=== PATIENT | male | born 1950 | race Caucasian/White ===

== ENCOUNTER 2020-05-04 16:20 | Emergency (ER) | payer MEDICARE, OTHER ==
[2020-05-04 16:44] VITALS: O2SAT 97
--- NOTE | 2020-05-04 16:47 | ERPHSYRPT ---
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 Patient had routine blood work drawn. His creatinine was observed to be 3.7. Patient was called at home and instructed to come to our ED immediately. Patient otherwise asymptomatic. Patient advised staff that he has stage IV renal failure and that his creatinine is typically in the 3.7 range. We reviewed patient's creatinine history and found that his creatinine is in the range of his normal. We discussed the case with patient's senior corporate accountant Dr. Cosby who advised that we not do anything further. Patient's other electrolytes were within normal limits. Potassium was normal as well. Patient's senior corporate accountant Dr. Cosby advised that we discharge patient. Nephrology will follow up with patient this week. Patient has no chest pain or shortness of breath. No weakness. No muscle cramps. No nausea or vomiting. No diarrhea. No fluid losses. No hematuria dysuria. No flank pain. Patient is at his baseline and has no complaints whatsoever. We will discharge patient home per his senior corporate accountant's advice as patient's creatinine of 3.7 is high compared to normal but it is within our patient's norm in light of his known stage IV renal insufficiency. Timing/Duration: today Severity: mild Modifying Factors: Improves With: nothing Associated Symptoms: No nausea, No vomiting, No abdominal pain, No shortness of breath, No heartburn, No diaphoresis, No cough, No chills, No chest pain, No fever, No headaches, No loss of appetite, No malaise, No syncope, No seizure, No weakness Allergies/Adverse Reactions: Tetracyclines Allergy (Intermediate, Verified 05/04/20 16:44) erythromycin base Allergy (Mild, Verified 05/04/20 16:44) Home Medications: Acetaminophen 325 mg [Tylenol 325 mg] 325 mg PO Q4H PRN PRN 09/02/16 [His tory] Amiodarone HCl 200 mg [Cordarone 200 MG] 200 mg PO DAILY 09/02/16 [History] Atenolol 50 mg [Tenormin 50 mg] 50 mg PO DAILY 09/02/16 [History] Atorvastatin Calcium 40 mg PO HS 09/02/16 [History] Clopidogrel Bisulfate 75 mg [PLAVIX 75 MG Tablet] 75 mg PO DAILY 09/02/16 [History] Docusate Sodium 100 mg [Colace 100 MG] 100 mg PO BID 09/02/16 [History] Famotidine 20 mg [Pepcid 20 MG] 20 mg PO DAILY 09/02/16 [History] Fexofenadine HCl 180 mg PO DAILY 09/02/16 [History] Glipizide 5 mg [Glucotrol 5 MG] 5 mg PO DAILY 09/02/16 [History] Glucagon 1 mg [GlucaGen 1 MG] 1 mg IM UD 09/02/16 [History] Glucosam/Chondr/Collagn/Hyalur [Glucosamine & Chondroitin Cap] 1 each PO BID 09/02/16 [History] Hydrocodone Bit/Acetaminophen [[place] 5/325Mg] 1 each PO Q4HPRN PRN 09/02/16 [History] Insulin Glargine,Hum.rec.anlog [[place]oujohnsono Solostar] 130 unit SQ DAILY 09/02/16 [History] Ipratropium [place] 0.5 mg [Atrovent 0.5MG NEBULE] 0.5 mg IH BID 09/02/16 [History] Isosorbide Mononitrate [Isosorbide Mononitrate ER] 30 mg PO DAILY 09/02/16 [History] Metoprolol Tartrate 50 mg [Lopressor 50 MG] 50 mg PO BID 09/02/16 [History] Multivit-Min/FA/Lycopen/Lutein [Men 50 Plus Multivitamin Tab] 1 each PO DAILY 09/02/16 [History] Omeprazole 20 mg PO DAILY 09/02/16 [History] Patiromer Calcium Sorbitex [Velt[place]] 8.4 gm PO DAILY 09/02/16 [History] Sodium Bicarbonate 325 mg PO BID 09/02/16 [History] Torsemide 20 mg PO BID 09/02/16 [History] Warfarin Sodium 7.5 mg PO DAILY 09/02/16 [History] calcitrioL [Calcitriol] 0.25 mcg PO UD 09/02/16 [History] Hx Tetanus, Diphtheria Vaccination/Date Given: No (STATES HE THINKS SO) Hx Influenza Vaccination/Date Given: Yes Hx Pneumococcal Vaccination/Date Given: No - Review of Systems Constitutional: No Symptoms, No Fever, No Chills Eyes: No Symptoms Ears, Nose, & Throat: No Symptoms Respiratory: No Symptoms, No Cough, No Dyspnea Cardiac: No Symptoms, No Chest Pain, No Edema, No Syncope Abdominal/Gastrointestinal: No Symptoms, No Abdominal Pain, No Nausea, No Vomiting, No Diarrhea Genitourinary Symptoms: No Symptoms, No Dysuria Musculoskeletal: No Symptoms, No Back Pain, No Neck Pain Skin: No Symptoms, No Rash Neurological: No Symptoms, No Dizziness, No Focal Weakness, No Sensory Changes Psychological: No Symptoms Endocrine: No Symptoms Hematologic/Lymphatic: No Symptoms Immunological/Allergic: No Symptoms All Other Systems: Reviewed and Negative - Past Medical History Pertinent Past Medical History: Yes Neurological History: No Pertinent History ENT History: No Pertinent History Cardiac History: Congestive Heart Failure, Hypertension Respiratory History: Pulmonary Embolism, CHF, Asthma, Bronchitis, Pneumonia Endocrine Medical History: No Pertinent History, Diabetes Type II Musculoskeletal History: Arthritis GI Medical History: Other History: No Pertinent History Psycho-Social History: No Pertinent History Male Reproductive Disorders: No Pertinent History Other Medical History: KIDNEY FUNCTION 23% (07/19/2016) - Past Surgical History Past Surgical History: Yes Neuro Surgical History: No Pertinent History Cardiac: Cardiac Catheterization Respiratory: No Pertinent History Gastrointestinal: No Pertinent History Musculoskeletal: No Pertinent History Male Surgical History: No Pertinent History Other Surgical History: DENTAL - Social History Smoking Status: Never smoker How long have you smoked: 1 year Exposure to second hand smoke: No Drug Use: none Patient Lives Alone: No Significant Family History: heart disease, hypertension, kidney/renal disease - Nursing Vital Signs Nursing Vital Signs: Initial Vital Signs Temperature 97.9 F 05/04/20 16:38 Pulse Rate 84 05/04/20 16:38 Blood Pressure 199/103 05/04/20 16:38 O2 Sat by Pulse Oximetry 97 05/04/20 16:38 Pain Scale Pain Intensity 0 - Physical Exam General Appearance: no apparent distress, alert Eye Exam: PERRL/EOMI, eyes nml inspection Ears, Nose, Throat Exam: normal ENT inspection, TMs normal, pharynx normal, moist mucous membranes Neck Exam: normal inspection, non-tender, supple, full range of motion Respiratory Exam: normal breath sounds, lungs clear, No respiratory distress Cardiovascular Exam: regular rate/rhythm, normal heart sounds, normal peripheral pulses Gastrointestinal/Abdomen Exam: soft, normal bowel sounds, No tenderness, No mass Back Exam: normal inspection, normal range of motion, No CVA tenderness, No vertebral tenderness Extremity Exam: normal inspection, normal range of motion, pelvis stable Neurologic Exam: alert, oriented x 3, cooperative, normal mood/affect, nml cerebellar function, nml station & gait, sensation nml, No motor deficits Skin Exam: normal color, warm, dry, No rash Lymphatic Exam: No adenopathy SpO2 Interpretation: normal SpO2: 97 O2 Delivery: Room Air - Course Nursing assessment & vital signs reviewed: Yes - Progress Progress: unchanged Progress Note: 05/04/20 16:48 Patient reassessed. He is adamant that patient is functioning at his baseline. He has no complaints. After discussion with Dr. Cosby we will discharge patient home. He will follow-up with his senior corporate accountant this week. Patient voices no complaints or concerns at this time. Counseled pt/family regarding: diagnosis, need for follow-up - Departure Departure Disposition: Home Clinical Impression: Encounter for medical screening examination, Chronic renal insufficiency, stage IV (severe) Condition: Stable Critical Care Time: No Referrals: KEVIN DEL VALLE [Primary Care Provider] - Additional Instructions: Discharge/Care Plan LYUDMILA BATES was seen on 05/04/20 in the Emergency Room. The patient was counseled regarding Diagnosis,Lab results, Imaging studies, need for follow up and when to return to the Emergency Room. Prescriptions given: Discharge Note I have spoken with the patient and/or caregivers. I have explained the patient's condition, diagnosis and treatment plan based on the information available to me at this time. I have answered the patient's and/or caregiver's questions and addressed any concerns. The patient and/or caregivers have as good understanding of the patient's diagnosis, condition and treatment plan as can be expected at this point. The vital signs have been stable. The patient's condition is stable and appropriate for discharge from the emergency department. The patient will pursue further outpatient evaluation with the primary care physician or other designated or consulting physician as outlined in the discharge instructions. The patient and/or caregivers are agreeable to this plan of care and follow-up instructions have been explained in detail. The patient and/or caregivers have received these instruction. The patient/and or caregivers are aware that any significant change in condition or worsening of symptoms should prompt an immediate return to this or the closest emergency department or call 911.
[2020-05-04 16:50] VITALS: BP 182/91; PULSE 80
== END 2020-05-04 16:50 | disposition home or self-care (01) ==
LOC: ED 16:20
DX: N18.4 Chronic kidney disease, stage 4 (severe) (principal); Z79.899 Other long term (current) drug therapy; I50.9 Heart failure, unspecified; I10 Essential (primary) hypertension; E11.9 Type 2 diabetes mellitus without complications; Z79.891 Long term (current) use of opiate analgesic; Z79.01 Long term (current) use of anticoagulants; Z79.4 Long term (current) use of insulin
CPT/HCPCS: 99283

== ENCOUNTER 2021-01-07 14:09 | Emergency (ER) | payer MEDICARE, OTHER ==
--- NOTE | 2021-01-07 14:29 | ERPHSYRPT ---
- History of Present Illness Time Seen by Provider: 01/07/21 14:29 Source: patient, EMS Exam Limitations: no limitations Patient Subjective Stated Complaint: C/O weakness over the past 2 days. States fell around 1200 today in the bathtub and had to crawl into the other room to get to a phone to call for help due to unable to get up off of the floor on his own after he fell. Took him over an hour to get to the phone. Denies pain at this time. Triage Nursing Assessment: Scarring and fistula in LFA. Has not received dialysis in fistula yet. 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 Able to LUX WNL without c/o pain or discomfort. BLE without shortening or external rotation noted. Physician History: This is a morbidly obese 70-year-old gentleman who is a patient of Dr. Echeverria and has multiple medical problems including morbid obesity, congestive heart failure, hypertension, pulmonary emboli on warfarin, asthma, bronchitis, diabetes, chronic renal failure with a left upper extremity fistula in place who presents via EMS for a fall that occurred in his bathroom while he was sitting in the bathtub cleaning himself. The patient states in the last 2 days he has n oticed increasing weakness overall but worse on the right side than the left side. Primarily his lower extremity rather than upper extremity. The patient states he was in the bath tub in his typical chair in the chair slipped out from under him he fell to the base of the bathtub. He did not hit his head. He has no complaints of neck pain back pain or headache. He did not lose consciousness. He could not get himself out of the bathtub and so he tried to manipulate himself out and then crawled from his bathroom to the family room where obtained a telephone and called 911 for lifting assistance and transport to the emergency department. Patient presents with some abrasions to the dorsal aspect of the toes of both feet. He has no chest pain he has no shortness of breath. He has no abdominal pain. He has had no nausea vomiting or diarrhea. The patient just wants to know why he is so weak. He wants to make sure he did not have a stroke. He also states that he prefers to go home. Timing/Duration: today Severity: mild Modifying Factors: Improves With: movement Associated Symptoms: weakness Allergies/Adverse Reactions: Tetracyclines Allergy (Intermediate, Verified 01/07/21 14:24) erythromycin base Allergy (Mild, Verified 01/07/21 14:24) Home Medications: Acetaminophen 325 mg [Tylenol 325 mg] 325 mg PO Q4H PRN PRN 09/02/16 [History] Atenolol 50 mg [Tenormin 50 mg] 50 mg PO DAILY 09/02/16 [History] Atorvastatin Calcium 40 mg PO HS 09/02/16 [History] Docusate Sodium 100 mg [Colace 100 MG] 100 mg PO BID 09/02/16 [History] Fexofenadine HCl 180 mg PO DAILY 09/02/16 [History] Glipizide 5 mg [Glucotrol 5 MG] 5 mg PO DAILY 09/02/16 [History] Glucagon 1 mg [GlucaGen 1 MG] 1 mg IM UD PRN 09/02/16 [History] Glucosam/Chondr/Collagn/Hyalur [Glucosamine & Chondroitin Cap] 1 each PO BID [History] Insulin Glargine,Hum.rec.anlog [[place]] 150 unit SQ DAILY 09/02/16 [History] Isosorbide Mononitrate [Isosorbide Mononitrate ER] 30 mg PO DAILY 09/02/16 [History] Metoprolol Tartrate 50 mg [Lopressor 50 MG] 50 mg PO BID 09/02/16 [History] Multivit-Min/FA/Lycopen/Lutein [Men 50 Plus Multivitamin Tab] 1 each PO DAILY 09/02/16 [History] Omeprazole 20 mg PO DAILY 09/02/16 [History] Torsemide 20 mg PO BID 09/02/16 [History] Empagliflozin [Jardiance] 10 mg PO DAILY 01/07/21 [History] Ergocalciferol (Vitamin D2) [Vitamin D] 50,000 units PO WEEKLY 01/07/21 [History] Ferrous Sulfate 325 mg [Feosol 325 mg] 325 mg PO BID 01/07/21 [History] Gabapentin 300 mg [Neurontin 300 mg] 300 mg PO TID 01/07/21 [History] Warfarin Sodium [Coumadin] 6 mg PO DAILY 01/07/21 [History] Hx Tetanus, Diphtheria Vaccination/Date Given: No (STATES HE THINKS SO) Hx Influenza Vaccination/Date Given: Yes Hx Pneumococcal Vaccination/Date Given: Yes Immunizations Up to Date: Yes Travel Risk - International Travel Have you traveled outside of the country in past 3 weeks: No - Coronavirus Screening Are you exhibiting any of the following symptoms?: No Close contact with a COVID-19 positive Pt in past 14-21 Days: No - Vaccine Status Have you recieved a Covid-19 vaccination: Yes 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: [employer] - Vaccination Dates Date of 2cond Vaccination (if applicable): 09/22/2020 - Review of Systems Constitutional: Weakness Eyes: No Symptoms Ears, Nose, & Throat: No Symptoms Respiratory: No Symptoms Cardiac: No Symptoms Abdominal/Gastrointestinal: No Symptoms Genitourinary Symptoms: No Symptoms Musculoskeletal: No Symptoms Skin: Other (Abrasions to the dorsal aspect of the toes of both feet.) Neurological: No Symptoms Psychological: No Symptoms Endocrine: No Symptoms Hematologic/Lymphatic: No Symptoms Immunological/Allergic: No Symptoms All Other Systems: Reviewed and Negative - Past Medical History Pertinent Past Medical History: Yes Neurological History: No Pertinent History ENT History: No Pertinent History Cardiac History: Congestive Heart Failure, Hypertension Respiratory History: Pulmonary Embolism, CHF, Asthma, Bronchitis, Pneumonia Endocrine Medical History: No Pertinent History, Diabetes Type II Musculoskeletal History: Arthritis GI Medical History: Other History: No Pertinent History Psycho-Social History: No Pertinent History Male Reproductive Disorders: No Pertinent History Other Medical History: KIDNEY FUNCTION 23% (07/19/2016) - Past Surgical History Past Surgical History: Yes Neuro Surgical History: No Pertinent History Cardiac: Cardiac Catheterization Respiratory: No Pertinent History Gastrointestinal: No Pertinent History Genitourinary: No Pertinent History Musculoskeletal: No Pertinent History, Amputation Male Surgical History: No Pertinent History Other Surgical History: DENTAL, Fistula placement - Social History Smoking Status: Never smoker How long have you smoked: 1 year Exposure to second hand smoke: No Drug Use: none Patient Lives Alone: Yes Significant Family History: heart disease, hypertension, kidney/renal disease - Nursing Vital Signs Nursing Vital Signs: Initial Vital Signs Temperature 98 F 01/07/21 14:11 Pulse Rate 81 01/07/21 14:11 Respiratory Rate 18 01/07/21 14:11 Blood Pressure 179/76 01/07/21 14:11 O2 Sat by Pulse Oximetry 97 01/07/21 14:11 Pain Scale Pain Intensity 0 - Physical Exam General Appearance: no apparent distress, alert, anxiety, obese Eye Exam: PERRL/EOMI, eyes nml inspection Ears, Nose, Throat Exam: normal ENT inspection, moist mucous membranes Neck Exam: normal inspection, non-tender, supple, full range of motion Respiratory Exam: normal breath sounds, lungs clear, airway intact, No chest tenderness, No respiratory distress Cardiovascular Exam: regular rate/rhythm, normal heart sounds, normal peripheral pulses Gastrointestinal/Abdomen Exam: soft, normal bowel sounds, No tenderness Rectal Exam: not done Back Exam: normal inspection, normal range of motion, No CVA tenderness, No vertebral tenderness Extremity Exam: normal inspection, normal range of motion, pelvis stable, other (Right first toe amputationremote) Neurologic Exam: alert, oriented x 3, cooperative, inspector elevators II-XII nml as tested Skin Exam: abrasion (Abrasion to the dorsal aspect of all remaining toes of the right foot and left foot, bilateral elbows and bilateral knees.) Lymphatic Exam: No adenopathy SpO2 Interpretation: normal SpO2: 97 O2 Delivery: Room Air - Course Nursing assessment & vital signs reviewed: Yes EKG Interpreted by Me: RATE (81), Sinus Rhythm, NORMAL AXIS, NORMAL INTERVALS, Right Bundle Branch Block, NORMAL ST-T, Other (There are no acute ischemic changes on today's EKG. When compared to EKG dated 07/24/2017, there is persistent right bundle branch block but today's EKG shows resolution of the other findings on EKG dated 07/24/2017 there is improvement in the EKGs.) Ordered Tests: Active Orders 24 hr Category Date Time Status Local City Driver STAT Care 01/07/21 14:43 Active EKG-ER Only STAT Care 01/07/21 14:42 Active IV Insertion STAT Care 01/07/21 14:42 Active NPO (ED) STAT Care 01/07/21 14:43 Active Pulse Oximetry (ED) STAT Care 01/07/21 14:42 Active HEAD WITHOUT CONTRAST [CT] Stat Exams 01/07/21 14:43 Completed CBC W DIFF Stat Lab 01/07/21 15:15 Completed CMP Stat Lab 01/07/21 15:15 Completed Lactic Acid Stat Lab 01/07/21 15:15 Completed TROPONIN Q3H Lab 01/07/21 15:15 Completed TROPONIN Q3H Lab 01/07/21 17:45 Ordered TROPONIN Q3H Lab 01/07/21 20:45 Ordered TROPONIN Q3H Lab 01/07/21 23:45 Ordered TROPONIN Q3H Lab 01/08/21 02:45 Ordered UA W/RFX UR CULTURE Stat Lab 01/07/21 14:50 Completed Lab/Rad Data: Laboratory Result Diagrams 01/07/21 15:15 01/07/21 15:15 Laboratory Results 01/07/21 01/07/21 01/07/21 Range/Units 15:15 15:15 15:15 WBC (4.0-10.5) K/mm3 RBC (4.1-5.6) M/mm3 Hgb (12.5-18.0) gm/dl Hct (42-50) % MCV (78-100) fl MCH (26-32) pg MCHC (32-36) g/dl RDW (11.5-14.0) % Plt Count (150-450) K/mm3 MPV (7.5-11.0) fl Gran % (36.0-66.0) % Eos # (Auto) (0-0.5) Absolute Lymphs (auto) (1.0-4.6) Absolute Monos (auto) (0.0-1.3) Lymphocytes % (24.0-44.0) % Monocytes % (0.0-12.0) % Eosinophils % (0.00-5.0) % Basophils % (0.0-0.4) % Absolute Granulocytes (1.4-6.9) Basophils # (0-0.4) Sodium 138 (137-145) mmol/L Potassium 4.4 (3.5-5.1) mmol/L Chloride 100 (98-107) mmol/L Carbon Dioxide 27 (22-30) mmol/L Anion Gap 15.4 H (5-15) MEQ/L BUN 44 H (9-20) mg/dL Creatinine 3.47 H (0.66-1.25) mg/dL Estimated GFR 18.8 ML/MIN Glucose 133 H (74-106) mg/dL Lactic Acid 2.7 H (0.4-2.0) Calcium 9.7 (8.4-10.2) mg/dL Total Bilirubin 0.40 (0.2-1.3) mg/dL AST 36 (17-59) U/L ALT 18 (0-50) U/L Alkaline Phosphatase 84 (38-126) U/L Troponin I 0.012 (0.000-0.034) ng/mL Serum Total Protein 7.2 (6.3-8.2) g/dL Albumin 4.2 (3.5-5.0) g/dL Urine Color (YELLOW) Urine Appearance (CLEAR) Urine pH (5-6) Ur Specific [place] (1.005-1.025) Urine Protein (Negative) Urine Ketones (NEGATIVE) Urine Blood (0-5) Mani/ul Urine Nitrite (NEGATIVE) Urine Bilirubin (NEGATIVE) Urine Urobilinogen (0-1) mg/dL Ur Leukocyte Esterase (NEGATIVE) Urine WBC (Auto) (0-5) /HPF Urine RBC (Auto) (0-2) /HPF U Epithel Cells (Auto) (FEW) /HPF Urine Bacteria (Auto) (NEGATIVE) /HPF Urine Mucus (Auto) (NEGATIVE) /HPF Urine Culture Reflexed (NO) Urine Glucose (NEGATIVE) mg/dL 01/07/21 01/07/21 Range/Units 15:15 14:50 WBC 13.6 H (4.0-10.5) K/mm3 RBC 4.39 (4.1-5.6) M/mm3 Hgb 12.8 (12.5-18.0) gm/dl Hct 39.7 L (42-50) % MCV 90.4 (78-100) fl MCH 29.2 (26-32) pg MCHC 32.2 (32-36) g/dl RDW 13.4 (11.5-14.0) % Plt Count 203 (150-450) K/mm3 MPV 11.6 H (7.5-11.0) fl Gran % 81.8 H (36.0-66.0) % Eos # (Auto) 0.17 (0-0.5) Absolute Lymphs (auto) 1.09 (1.0-4.6) Absolute Monos (auto) 1.18 (0.0-1.3) Lymphocytes % 8.0 L (24.0-44.0) % Monocytes % 8.7 (0.0-12.0) % Eosinophils % 1.3 (0.00-5.0) % Basophils % 0.2 (0.0-0.4) % Absolute Granulocytes 11.12 H (1.4-6.9) Basophils # 0.03 (0-0.4) Sodium (137-145) mmol/L Potassium (3.5-5.1) mmol/L Chloride (98-107) mmol/L Carbon Dioxide (22-30) mmol/L Anion Gap (5-15) MEQ/L BUN (9-20) mg/dL Creatinine (0.66-1.25) mg/dL Estimated GFR ML/MIN Glucose (74-106) mg/dL Lactic Acid (0.4-2.0) Calcium (8.4-10.2) mg/dL Total Bilirubin (0.2-1.3) mg/dL AST (17-59) U/L ALT (0-50) U/L Alkaline Phosphatase (38-126) U/L Troponin I (0.000-0.034) ng/mL Serum Total Protein (6.3-8.2) g/dL Albumin (3.5-5.0) g/dL Urine Color STRAW (YELLOW) Urine Appearance CLEAR (CLEAR) Urine pH 5.0 (5-6) Ur Specific [place] 1.009 (1.005-1.025) Urine Protein 100 (Negative) Urine Ketones NEGATIVE (NEGATIVE) Urine Blood SMALL (0-5) Mani/ul Urine Nitrite NEGATIVE (NEGATIVE) Urine Bilirubin NEGATIVE (NEGATIVE) Urine Urobilinogen NEGATIVE (0-1) mg/dL Ur Leukocyte Esterase NEGATIVE (NEGATIVE) Urine WBC (Auto) NONE (0-5) /HPF Urine RBC (Auto) 0-2 (0-2) /HPF U Epithel Cells (Auto) NONE (FEW) /HPF Urine Bacteria (Auto) NONE SEEN (NEGATIVE) /HPF Urine Mucus (Auto) SLIGHT (NEGATIVE) /HPF Urine Culture Reflexed NO (NO) Urine Glucose >=500 (NEGATIVE) mg/dL - Progress Progress: unchanged Progress Note: 01/07/21 15:47 CAT scan of the head without contrast shows age-appropriate atrophy and degenerative microischemia. There is tiny lacunar infarct of the left basal ganglia. There is no acute intracranial abnormalities per radiologist 01/07/21 16:24 Medical decision making: This patient is diabetic and has leukocytosis. The cause of this is unknown. He does have chronic renal failure reviewing past creatinines and GFR is in this patient, reveals his current renal function is in his normal range. His lactic acid was elevated. He is afebrile. I will discharge to home this patient with a prescription for 5 doses of Levaquin 500 mg orally every other day because of his renal function. 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 01/07/21 16:29 Patient reexamined. Patient states that he feels well enough to go home and wants to go home. Counseled pt/family regarding: lab results, diagnosis, need for follow-up, rad results - Departure Departure Disposition: Home Clinical Impression: Leukocytosis, Chronic renal failure Condition: Stable Critical Care Time: No Referrals: KEVIN ECHEVERRIA [Primary Care Provider] - Additional Instructions: Drink plenty of fluids. Take your medication as prescribed. Keep all your abrasion sites clean daily with soap and water. May apply topical antibiotic of choice to the sites once a day. Follow-up with your primary care physician for further management. Prescriptions: Levofloxacin [Levaquin] 500 mg PO UD #5 dose
--- NOTE | 2021-01-07 15:12 | XRAY ---
Indication: Head injury following fall in bathtub. Right-sided weakness. Multiple contiguous axial images obtained through the head without contrast. Comparison: None Age-appropriate global atrophy and mild periventricular degenerative micro-ischemia bilaterally. Tiny lacunar infarct left basal ganglia. No acute intracranial hemorrhage, abnormal extra-axial fluid collection, or mass effect. Fourth ventricle is midline without hydrocephalus. Bony calvarium intact. Visualized paranasal sinuses and mastoid air cells are clear. Impression: Normal aging brain including atrophy and degenerative micro-ischemia. Tiny lacunar infarct left basal ganglia. No acute intracranial abnormalities.
[2021-01-07 15:29] LABS: Absolute Neutrophil Ct (ANC) 11.12 (1.4-6.9); BASOPHIL % 0.2 % (0.0-0.4); Basophil (Absolute #) 0.03 (0-0.4); Eosinophil % 1.3 % (0.00-5.0); Eosinophil (Absolute #) 0.17 (0-0.5); Hematocrit 39.7 % (42-50); Hemoglobin 12.8 gm/dl (12.5-18.0); Lymphocyte (Absolute #) 1.09 (1.0-4.6); Mean Cell Volume 90.4 fl (78-100); Mean Corpuscular Hemoglobin 29.2 pg (26-32); Mean Corpuscular Hgb Concent. 32.2 g/dl (32-36); Mean Platelet Volume 11.6 fl (7.5-11.0); Monocyte (Absolute #) 1.18 (0.0-1.3); Monocytes % 8.7 % (0.0-12.0); Neutrophil % 81.8 % (36.0-66.0); Platelet Count 203 K/mm3 (150-450); Red Blood Count 4.39 M/mm3 (4.1-5.6); Red Cell Distribution Width 13.4 % (11.5-14.0); White Blood Count 13.6 K/mm3 (4.0-10.5)
[2021-01-07 15:36] VITALS: BP 161/79; PULSE 84
[2021-01-07 15:41] LABS: ALBUMIN 4.2 g/dL (3.5-5.0); ANION GAP 15.4 MEQ/L (5-15); BILIRUBIN,TOTAL 0.4 mg/dL (0.2-1.3); Calcium 9.7 mg/dL (8.4-10.2); Creatinine 1 3.47 mg/dL (0.66-1.25); EST GLOMERULAR FILTRATION RATE 18.8 ML/MIN; Potassium 4.4 mmol/L (3.5-5.1); Total Protein 7.2 g/dL (6.3-8.2)
[2021-01-07 15:50] LABS: Appearance CLEAR (CLEAR); Bilirubin NEGATIVE (NEGATIVE); Blood SMALL Ery/ul (0-5); Glucose >=500 mg/dL (NEGATIVE); Ketones NEGATIVE (NEGATIVE); Leukocyte Esterase NEGATIVE (NEGATIVE); Mucus SLIGHT /HPF (NEGATIVE); Nitrite NEGATIVE (NEGATIVE); Protein,Urine Dip 100 (Negative); RBC 0-2 /HPF (0-2); Specific Gravity 1.009 (1.005-1.025); Urobilinogen NEGATIVE mg/dL (0-1)
[2021-01-07 15:52] LABS: Bacteria NONE SEEN /HPF (NEGATIVE)
[2021-01-07 16:47] VITALS: O2SAT 98
== END 2021-01-07 16:57 | disposition home or self-care (01) ==
LOC: ED 14:09
DX: Z79.899 Other long term (current) drug therapy (principal); I12.9 Hypertensive chronic kidney disease with stage 1 through stage 4 chronic kidney disease, or unspecified chronic kidney disease; E11.9 Type 2 diabetes mellitus without complications; W19.XXXA Unspecified fall, initial encounter; Y93.9 Activity, unspecified; Y92.89 Other specified places as the place of occurrence of the external cause
CPT/HCPCS: 36000; 36415; 70450; 80053; 81001; 83605; 84484; 85025; 93005; 93041; 94760; 99284

== ENCOUNTER 2021-01-07 22:09 | Inpatient (IN) | payer MEDICARE, OTHER ==
--- NOTE | 2021-01-07 22:10 | ERPHSYRPT ---
- History of Present Illness Time Seen by Provider: 01/07/21 22:10 Source: patient, EMS Exam Limitations: no limitations Physician History: This is a morbidly obese 70-year-old white male patient of Dr. Echeverria who was seen in this emergency room earlier today (less than 8 hours ago). Patient was diagnosed with leukocytosis of unknown origin, chronic renal failure, abrasions of the toes bilaterally, bilateral feet, bilateral knees and bilateral elbows and generalized weakness. CAT scan of the head without contrast showed no acute intracranial abnormalities. Patient was sent home with a prescription for Levaquin. Patient was feeling better and his work-up was not significant for any emergent issues. Patient wanted to be discharged to home and was feeling better and walked out of the door and out to the car of his ride earlier today. Patient went home and his right leg gave out. He then dropped to the floor. He did not suffer any trauma that was due to this evening but had difficulty getting up again and had to crawl to call EMS. EMS brought the patient in. He is hemodynamically stable. He has a complaint of generalized weakness. I contacted Dr. Echeverria, the patient's primary care provider who is also covering is the hospitalist today. He agreed with me that is not necessary to repeat all the studies. He did want me to obtain a procalcitonin level on the earlier blood draw to determine if this patient needs continued Levaquin. Patient denies chest pain. He denies shortness of breath. Patient lives alone Timing/Duration: today Severity: moderate Modifying Factors: Improves With: movement Associated Symptoms: weakness Allergies/Adverse Reactions: Tetracyclines Allergy (Intermediate, Verified 01/07/21 22:12) erythromycin base Allergy (Mild, Verified 01/07/21 22:12) Home Medications: Acetaminophen 325 mg [Tylenol 325 mg] 325 mg PO Q4H PRN PRN 09/02/16 [History] Atenolol 50 mg [Tenormin 50 mg] 50 mg PO DAILY 09/02/16 [History] Atorvastatin Calcium 40 mg PO HS 09/02/16 [History] Docusate Sodium 100 mg [Colace 100 MG] 100 mg PO BID 09/02/16 [History] Fexofenadine HCl 180 mg PO DAILY 09/02/16 [History] Glipizide 5 mg [Glucotrol 5 MG] 5 mg PO DAILY 09/02/16 [History] Glucagon 1 mg [GlucaGen 1 MG] 1 mg IM UD PRN 09/02/16 [History] Glucosam/Chondr/Collagn/Hyalur [Glucosamine & Chondroitin Cap] 1 each PO BID 09/02/16 [History] Insulin Glargine,Hum.rec.anlog [Toujeo Solostar] 150 unit SQ DAILY 09/02/16 [History] Isosorbide Mononitrate [Isosorbide Mononitrate ER] 30 mg PO DAILY 09/02/16 [History] Metoprolol Tartrate 50 mg [Lopressor 50 MG] 50 mg PO BID 09/02/16 [History] Multivit-Min/FA/Lycopen/Lutein [Men 50 Plus Multivitamin Tab] 1 each PO DAILY 09/02/16 [History] Omeprazole 20 mg PO DAILY 09/02/16 [History] Torsemide 20 mg PO BID 09/02/16 [History] Empagliflozin [Jardiance] 10 mg PO DAILY 01/07/21 [History] Ergocalciferol (Vitamin D2) [Vitamin D] 50,000 units PO WEEKLY 01/07/21 [History] Ferrous Sulfate 325 mg [Feosol 325 mg] 325 mg PO BID 01/07/21 [History] Gabapentin 300 mg [Neurontin 300 mg] 300 mg PO TID 01/07/21 [History] Warfarin Sodium [Coumadin] 6 mg PO DAILY 01/07/21 [History] Hx Tetanus, Diphtheria Vaccination/Date Given: No (STATES HE THINKS SO) Hx Influenza Vaccination/Date Given: Yes Hx Pneumococcal Vaccination/Date Given: Yes Travel Risk - International Travel Have you traveled outside of the country in past 3 weeks: No - Coronavirus Screening Are you exhibiting any of the following symptoms?: No Close contact with a COVID-19 positive Pt in past 14-21 Days: No - Vaccine Status Have you recieved a Covid-19 vaccination: Yes [facility] [employer]: Moderna - Vaccination Dates Date of 2cond Vaccination (if applicable): 09/22/2020 - Review of Systems Constitutional: Weakness Eyes: No Symptoms Ears, Nose, & Throat: No Symptoms Respiratory: No Symptoms Cardiac: No Symptoms Abdominal/Gastrointestinal: No Symptoms Genitourinary Symptoms: No Symptoms Musculoskeletal: No Symptoms Skin: Other (Abrasions to bilateral elbows, bilateral knees, bilateral feet and multiple toes bilaterally) Psychological: No Symptoms Endocrine: No Symptoms Hematologic/Lymphatic: No Symptoms Immunological/Allergic: No Symptoms All Other Systems: Reviewed and Negative - Past Medical History Pertinent Past Medical History: Yes Neurological History: No Pertinent History ENT History: No Pertinent History Cardiac History: Congestive Heart Failure, Hypertension Respiratory History: Pulmonary Embolism, CHF, Asthma, Bronchitis, Pneumonia Endocrine Medical History: No Pertinent History, Diabetes Type II Musculoskeletal History: Arthritis GI Medical History: Other History: No Pertinent History Psycho-Social History: No Pertinent History Male Reproductive Disorders: No Pertinent History Other Medical History: KIDNEY FUNCTION 23% (07/19/2016) - Past Surgical History Past Surgical History: Yes Neuro Surgical History: No Pertinent History Cardiac: Cardiac Catheterization Respiratory: No Pertinent History Gastrointestinal: No Pertinent History Genitourinary: No Pertinent History Musculoskeletal: No Pertinent History, Amputation Male Surgical History: No Pertinent History Other Surgical History: DENTAL, Fistula placement - Social History Smoking Status: Never smoker How long have you smoked: 1 year Exposure to second hand smoke: No Drug Use: none Patient Lives Alone: Yes Significant Family History: heart disease, hypertension, kidney/renal disease - Nursing Vital Signs Nursing Vital Signs: Initial Vital Signs Pulse Rate 107 H 01/07/21 22:09 Respiratory Rate 16 01/07/21 22:09 Blood Pressure 144/93 01/07/21 22:09 O2 Sat by Pulse Oximetry 98 01/07/21 22:09 Pain Scale Pain Intensity 5 - Physical Exam General Appearance: no apparent distress, alert, anxiety, obese Eye Exam: PERRL/EOMI, eyes nml inspection Ears, Nose, Throat Exam: normal ENT inspection, moist mucous membranes Neck Exam: normal inspection, non-tender, supple, full range of motion Respiratory Exam: normal breath sounds, lungs clear, airway intact, No chest tenderness, No respiratory distress Cardiovascular Exam: normal heart sounds, normal peripheral pulses, tachycardia Rectal Exam: not done Back Exam: normal inspection, normal range of motion, No CVA tenderness, No vertebral tenderness Extremity Exam: normal range of motion, pelvis stable, tenderness (To abrasion sites of bilateral elbows bilateral knees and bilateral feet with toes bilaterally) Neurologic Exam: alert, oriented x 3, cooperative, band instrument repairer II-XII nml as tested, normal mood/affect, nml cerebellar function, sensation nml Skin Exam: warm, dry, abrasion (Abrasions as stated above) Lymphatic Exam: No adenopathy SpO2 Interpretation: normal O2 Delivery: Room Air Ordered Tests: Active Orders 24 hr Category Date Time Status PROCALCITONIN Stat Lab 01/07/21 15:22 Completed Transfer Order Routine Transfer 01/07/21 Ordered Lab/Rad Data: Laboratory Results 01/07/21 Range/Units 15:22 Procalcitonin 0.109 H (0.030-0.080) ng/mL - Progress Progress: unchanged Discussed with : Althea Counseled pt/family regarding: lab results, diagnosis - Departure Departure Disposition: In-patient Admission Clinical Impression: Weakness, Difficulty in walking, Chronic renal failure, Leukocytosis, Abrasions of multiple sites, Tachycardia Condition: Fair Critical Care Time: No Referrals: KEVIN ECHEVERRIA [Primary Care Provider] -
[2021-01-08] MEDS ORDERED: Zofran 4 MG/2 ML VIAL IV PRN (00:09)
[2021-01-08] MEDS ORDERED: TYLENOL 325 MG PO PRN (00:09)
[2021-01-08 00:57] LABS: Absolute Neutrophil Ct (ANC) 12.01 (1.4-6.9); BASOPHIL % 0.1 % (0.0-0.4); Basophil (Absolute #) 0.02 (0-0.4); Eosinophil % 0.3 % (0.00-5.0); Eosinophil (Absolute #) 0.04 (0-0.5); Hematocrit 38.1 % (42-50); Hemoglobin 12.4 gm/dl (12.5-18.0); Lymphocyte (Absolute #) 1.07 (1.0-4.6); Lymphocytes % 7.3 % (24.0-44.0); Mean Cell Volume 90.1 fl (78-100); Mean Corpuscular Hemoglobin 29.3 pg (26-32); Mean Corpuscular Hgb Concent. 32.5 g/dl (32-36); Mean Platelet Volume 11.5 fl (7.5-11.0); Monocyte (Absolute #) 1.48 (0.0-1.3); Monocytes % 10.1 % (0.0-12.0); Neutrophil % 82.2 % (36.0-66.0); Platelet Count 203 K/mm3 (150-450); Red Blood Count 4.23 M/mm3 (4.1-5.6); Red Cell Distribution Width 13.5 % (11.5-14.0); White Blood Count 14.6 K/mm3 (4.0-10.5)
[2021-01-08 01:08] LABS: ANION GAP 14.3 MEQ/L (5-15); Calcium 9.5 mg/dL (8.4-10.2); Creatinine 1 3.59 mg/dL (0.66-1.25); EST GLOMERULAR FILTRATION RATE 18.1 ML/MIN; Potassium 4.1 mmol/L (3.5-5.1)
[2021-01-08] MEDS: Sodium Chloride 0.9% 1000 ML 1,000 ML IV SCH ×2 (01:34→19:30)
[2021-01-08] MEDS: Levofloxacin 500MG/100ML D5W 500 MG/100 ML BAG IV SCH (01:39)
[2021-01-08] MEDS ORDERED: GlucaGen 1 MG IM PRN (09:13)
[2021-01-08] MEDS ORDERED: MEDICATION INTERVENTION PO SCH ×2 (09:30)
[2021-01-08] MEDS ORDERED: NON-FORMULARY ITEM (Losartan Potassium [Cozaar] 25 MG) PO SCH (10:00)
[2021-01-08] MEDS ORDERED: [UNRECOGNIZED DRUG - OTHER] PO SCH (10:00)
[2021-01-08] MEDS ORDERED: Bactroban OINTMENT TP SCH (10:00)
[2021-01-08] MEDS ORDERED: NON-FORMULARY ITEM (Empagliflozin [Jardiance] 10 MG) PO SCH (10:00)
[2021-01-08] MEDS ORDERED: WARFARIN SODIUM 6 MG PO SCH (10:00)
[2021-01-08] MEDS ORDERED: NON-FORMULARY ITEM (Omeprazole [Omeprazole] 20 MG) PO SCH (10:00)
[2021-01-08] MEDS: Bactroban OINTMENT TP SCH ×3 (10:33→20:36)
[2021-01-08] MEDS: Colace 100 MG PO SCH (10:35)
[2021-01-08] MEDS: Lopressor 50 MG PO SCH ×2 (10:35→20:38)
[2021-01-08] MEDS: Cozaar 50 MG PO SCH (10:35)
[2021-01-08] MEDS: Protonix 40MG Tablet PO SCH (10:35)
[2021-01-08 11:52] LABS: INR 1.77 (0.8-3.0); PROTIME 20.9 SECONDS (9.4-12.5)
[2021-01-08] MEDS: HUMULIN R SQ PRN ×3 (12:10→20:38)
[2021-01-08] MEDS: TYLENOL 325 MG PO PRN ×3 (15:28→23:37)
[2021-01-08] MEDS: Glucotrol 5 MG PO SCH (16:22)
[2021-01-08] MEDS: Coumadin 3 MG PO SCH (17:00)
[2021-01-08] MEDS: ZOCOR 20MG PO SCH (20:38)
[2021-01-08] MEDS ORDERED: LIPITOR 40MG PO SCH (22:00)
[2021-01-09] MEDS: TYLENOL 325 MG PO PRN ×4 (04:08→20:33)
[2021-01-09 07:02] LABS: Absolute Neutrophil Ct (ANC) 6.59 (1.4-6.9); BASOPHIL % 0.4 % (0.0-0.4); Basophil (Absolute #) 0.04 (0-0.4); Eosinophil (Absolute #) 0.38 (0-0.5); Hematocrit 37.8 % (42-50); Hemoglobin 12.2 gm/dl (12.5-18.0); Lymphocyte (Absolute #) 1.37 (1.0-4.6); Lymphocytes % 14.5 % (24.0-44.0); Mean Cell Volume 91.1 fl (78-100); Mean Corpuscular Hemoglobin 29.4 pg (26-32); Mean Corpuscular Hgb Concent. 32.3 g/dl (32-36); Mean Platelet Volume 11.6 fl (7.5-11.0); Monocyte (Absolute #) 1.06 (0.0-1.3); Monocytes % 11.2 % (0.0-12.0); Neutrophil % 69.9 % (36.0-66.0); Platelet Count 184 K/mm3 (150-450); Red Blood Count 4.15 M/mm3 (4.1-5.6); Red Cell Distribution Width 13.3 % (11.5-14.0); White Blood Count 9.4 K/mm3 (4.0-10.5)
[2021-01-09 07:05] LABS: INR 1.77 (0.8-3.0); PROTIME 20.9 SECONDS (9.4-12.5)
[2021-01-09 07:12] LABS: ALBUMIN 3.8 g/dL (3.5-5.0); BILIRUBIN,TOTAL 0.4 mg/dL (0.2-1.3); Calcium 8.9 mg/dL (8.4-10.2); Creatinine 1 3.41 mg/dL (0.66-1.25); EST GLOMERULAR FILTRATION RATE 19.2 ML/MIN; Potassium 4.2 mmol/L (3.5-5.1); Total Protein 6.8 g/dL (6.3-8.2)
[2021-01-09] MEDS: Glucotrol 5 MG PO SCH ×2 (07:44→16:29)
[2021-01-09] MEDS: HUMULIN R SQ PRN ×3 (07:45→20:32)
[2021-01-09] MEDS: Cozaar 50 MG PO SCH (10:20)
[2021-01-09] MEDS: Protonix 40MG Tablet PO SCH (10:20)
[2021-01-09] MEDS: Bactroban OINTMENT TP SCH ×3 (10:20→20:34)
[2021-01-09] MEDS: Lopressor 50 MG PO SCH ×2 (10:20→20:32)
[2021-01-09] MEDS: Colace 100 MG PO SCH (10:21)
[2021-01-09] MEDS: Coumadin 3 MG PO SCH (16:30)
[2021-01-09] MEDS: ZOCOR 20MG PO SCH (20:33)
[2021-01-10] MEDS: Levofloxacin 500MG/100ML D5W 500 MG/100 ML BAG IV SCH (00:10)
[2021-01-10] MEDS: TYLENOL 325 MG PO PRN ×2 (00:10→11:10)
[2021-01-10 06:28] LABS: Hematocrit 38.6 % (42-50); Hemoglobin 12.2 gm/dl (12.5-18.0); Mean Cell Volume 92.8 fl (78-100); Mean Corpuscular Hemoglobin 29.3 pg (26-32); Mean Corpuscular Hgb Concent. 31.6 g/dl (32-36); Mean Platelet Volume 12.3 fl (7.5-11.0); Platelet Count 159 K/mm3 (150-450); Red Blood Count 4.16 M/mm3 (4.1-5.6); Red Cell Distribution Width 13.4 % (11.5-14.0); White Blood Count 9.7 K/mm3 (4.0-10.5)
[2021-01-10 06:34] LABS: INR 1.61 (0.8-3.0)
[2021-01-10 06:41] LABS: ALBUMIN 3.4 g/dL (3.5-5.0); BILIRUBIN,TOTAL 0.4 mg/dL (0.2-1.3); Calcium 8.7 mg/dL (8.4-10.2); Creatinine 1 3.03 mg/dL (0.66-1.25); Potassium 4.8 mmol/L (3.5-5.1); Total Protein 6.1 g/dL (6.3-8.2)
[2021-01-10] MEDS: Glucotrol 5 MG PO SCH ×2 (08:08→17:22)
[2021-01-10] MEDS: HUMULIN R SQ PRN ×4 (08:08→21:13)
[2021-01-10 08:21] LABS: Basophil 1 % (0.0-1.0); Eosinophil 5 % (0.00-3.0); Lymphocytes 17 % (24-44); Monocyte 2 % (0.0-12.0); Neutrophils 75 % (36.-66.); Total Cells Counted 100
[2021-01-10 08:22] LABS: Platelet Estimate NORMAL (NORMAL)
[2021-01-10] MEDS: Colace 100 MG PO SCH (11:03)
[2021-01-10] MEDS: Cozaar 50 MG PO SCH (11:03)
[2021-01-10] MEDS: Protonix 40MG Tablet PO SCH (11:04)
[2021-01-10] MEDS: Lopressor 50 MG PO SCH ×2 (11:04→19:53)
[2021-01-10] MEDS: Bactroban OINTMENT TP SCH ×3 (11:05→19:53)
--- NOTE | 2021-01-10 11:17 | HP ---
CHIEF COMPLAINT: Right leg weakness and falling. HISTORY OF PRESENT ILLNESS: The patient is a 70 year-old white male patient who was in the shower and said his right leg gave way with him and he fell in the tub. He was unable to get out of the tub for up to an hour after which he crawled to a phone and summoned help. The patient does not have any family here locally and lives alone currently and has a friend who can come and check on him was not present that day. The patient has history of chronic renal failure and diabetes mellitus type II, now with generalized weakness. PAST MEDICAL/SURGICAL HISTORY: Significant for diabetes mellitus type II currently on insulin as well as oral medications. He is morbidly obese. He has hypertension, peripheral neuropathy due to the diabetes, history previously of pulmonary embolism for which he is on Coumadin. He has had a heart cath, fistula for his arm and need for eventual dialysis. MEDICATIONS: The patient's home medication list is extensive. It includes: Acetaminophen every 4 hours PRN for pain, amlodipine 10 mg daily, atorvastatin 40 a day, clonidine 0.1 mg t.i.d., docusate sodium 100 mg daily, Jardiance 10 mg a day, vitamin D 50,000 units weekly, gabapentin 300 mg t.i.d., glipizide 5 mg b.i.d., glucagon if his sugar is up. He takes glucosamine chondroitin for knee pain. He is on 100 to 120 subcu twice daily of Insulin Glargine. He is on isosorbide at 60 mg a day. He is on losartan 25 mg a day, metolazone 2.5 mg a day, metoprolol 100 mg b.i.d., omeprazole 20 mg a day, Torsemide 20 mg b.i.d., warfarin 6 mg daily. ALLERGIES: TETRACYCLINES. ERYTHROMYCIN. PHYSICAL EXAMINATION: Vital signs on admission showed temperature afebrile, pulse 107, respiratory rate 16 and blood pressure 144/93. O2 saturation 98% on room air. HEENT: Normocephalic, atraumatic. Pupils equal round reactive to light. Extraocular movements intact. Oropharynx is pink and moist. NECK: Supple without lymphadenopathy, thyromegaly or JVD. CHEST: Clear to auscultation. HEART: Regular rate and rhythm. ABDOMEN: Soft without palpable masses. EXTREMITIES: Revealed no cyanosis, clubbing or edema other than abrasions over the knee and right foot from where he was crawling around on the rug. LAB DATA AND TESTS: The patient's laboratory studies thus far have shown slight elevation in the procalcitonin and white count initially of 12,500. His COVD test was negative. His metabolic panel showed glucose of 129, BUN 45, creatinine 3.59. His electrolytes were normal. His white count had increased to 14,600. ASSESSMENT: The patient had been initially been sent home from the emergency room but upon return for the weakness, the repeat showed his white count to be up slightly. This patient was treated with Levaquin in the emergency room without a clear source of infection although his white count being up as well as procalcitonin as well. I agree with broad spectrum coverage. We started the patient on Levaquin IV. He has been started on IV fluids at 50 cc normal saline and will have Accu-Chek's performed. We will monitor his blood pressures and sugars closely. We will continue to continue to give him IV Levaquin and IV fluids and obtain physical therapy consult to see if the patient will be safe to return home or whether he needs treatment at a rehab facility.
[2021-01-10] MEDS ORDERED: Lantus Insulin SQ ONE (14:09)
--- NOTE | 2021-01-10 14:13 | XRAY ---
Indication: USP placement. Comparison: None PA/lateral chest hyperinflated without focal infiltrate, consolidation, or large effusion. Heart not enlarged and demonstrates CABG surgery. Bony thorax intact with mild osteopenia and degenerative changes. Impression: Nonacute chest with chronic features.
[2021-01-10] MEDS: PATIENT OWN MEDICATION PO SCH ×2 (14:42→14:57)
[2021-01-10] MEDS: Coumadin 3 MG PO SCH (17:22)
[2021-01-10] MEDS: HUMALOG SQ SCH (17:23)
[2021-01-10] MEDS: BUMEX 1 MG IV SCH (21:13)
[2021-01-10] MEDS: ZOCOR 20MG PO SCH (21:13)
[2021-01-10] MEDS: Lantus Insulin SQ SCH (21:13)
[2021-01-11] MEDS: BUMEX 1 MG IV SCH ×4 (02:00→21:03)
[2021-01-11] MEDS: TYLENOL 325 MG PO PRN ×3 (04:37→14:04)
[2021-01-11 05:59] LABS: ALBUMIN 3.9 g/dL (3.5-5.0); ANION GAP 13.2 MEQ/L (5-15); BILIRUBIN,TOTAL 0.3 mg/dL (0.2-1.3); Calcium 9.1 mg/dL (8.4-10.2); Creatinine 1 3.45 mg/dL (0.66-1.25); EST GLOMERULAR FILTRATION RATE 18.9 ML/MIN; Potassium 4.5 mmol/L (3.5-5.1); Total Protein 7.1 g/dL (6.3-8.2)
[2021-01-11] MEDS: HUMULIN R SQ PRN ×2 (08:00→11:30)
[2021-01-11] MEDS: HUMALOG SQ SCH ×3 (08:00→16:48)
[2021-01-11] MEDS: Glucotrol 5 MG PO SCH ×2 (08:00→16:48)
--- NOTE | 2021-01-11 08:27 | CONS ---
CONSULT DATE: 01/10/2021 REASON FOR CONSULT: Evaluation of increased BUN and creatinine. HISTORY: Shon Parikh is a very pleasant 70 year-old gentleman who is well known to renal service. The patient follows up with me for chronic kidney disease stage IV and in the past was stage V. Baseline creatinine in the office has anywhere around 3.5 to 3.8 mg%. The patient's etiology of chronic kidney disease is related to underlying history of hypertension, diabetes, obesity. The patient is chronically noncompliant. He also has tendency for fluid overload. He is status post AV fistula by Dr. Barrios. The fistula has not matured very well. The patient was admitted to [facility] after he was in the shower and his right leg gave away and he fell in the tub. He was unable to get out of the tub. He crawled to the phone and summoned for help. He was subsequently admitted to the hospital. He has progressive leg swelling. Creatinine was 3 and a renal consultation was called. REVIEW OF SYSTEMS: No nausea, vomiting or diarrhea. No chest pain. No shortness of breath. Generalized weakness present. No dysuria or hematuria. Wounds were present. Progressive leg swelling was present. His diuretics were held at admission. All systems were reviewed in detail and pertinent mentioned here and in history of present illness and the rest were negative. PAST MEDICAL HISTORY: Diabetes mellitus type II, hypertension, chronic kidney disease stage IV progressing to stage V. Fluid overload. History of congestive heart failure. Atrial fibrillation. Dyslipidemia. Chronic constipation. Obesity. Chronic osteoarthritis. History of pulmonary embolism. PAST SURGICAL HISTORY: AV fistula placement in the past. HOME MEDICATIONS: Amlodipine 10 mg daily, meclizine 2.5 mg Sunday, Sunday and Sunday; torsemide 20 mg b.i.d., glipizide 5 mg b.i.d., Jardiance 10 mg daily, amlodipine 10 mg daily, vitamin D supplementation, isosorbide 60 mg daily, losartan 25 daily, metoprolol 100 mg b.i.d. ALLERGIES: TETRACYCLINE. ERYTHROMYCIN. SOCIAL HISTORY: Former smoker. No alcohol abuse. No drug abuse. FAMILY HISTORY: No history of renal problems in the family. PHYSICAL EXAMINATION: Reveals a gentleman who was seen on the Med/Surg floor. Vital signs were reviewed. HEENT: Normocephalic, atraumatic, slightly pale conjunctivae, nonicteric sclera. NECK: Supple. No JVD. CHEST: Decreased basilar breath sounds. CVS: S1, S2 normal. No rub or gallop. ABDOMEN: Soft, nontender, globular. No organomegaly. EXTREMITIES: No cyanosis. Edema +2 to +3 bilaterally. SKIN: Multiple wounds noted over the foot and leg. MUSCULOSKELETAL: No acute joint swelling, redness, nontender. NEUROLOGIC: Alert, awake, oriented x3. LAB DATA AND TESTS: Labs were reviewed. Hemoglobin 12.2. INR was 1.61. Creatinine 3.03, potassium 4.8, calcium 8.7. Blood sugar was 303. ASSESSMENT: 1) Chronic kidney disease stage IV at the cusp of stage V. Creatinine is lower than baseline. The baseline is around 3.5 to 3.8 mg%, this could be because of volume overload and causing redistribution of creatinine and dilutional effect. We will restart diuretics. No evidence of acute kidney injury. Potassium normal. Bicarb levels normal. Urinating well. No urgent need for any renal replacement therapy. Avoid nonsteroidals. Okay to continue small dose of losartan. 2) Fluid overload with multiple wounds. With the fluid overload will impair healing. Start Bumex 1 mg every six hours for 24 hours followed by resumption of home diuretics. We will recommend 1500 cc fluid restriction. 3) Status post fall. Check CPK levels though I doubt myoglobin related renal injury given the fact that creatinine is lower than baseline. 4) Hypertension. Continue present medication, 2 gm salt restricted diet, 1500 cc fluid restriction recommended. 5) Diabetes mellitus type II. Management as per primary team. 6) Hyperkalemia. Usually high potassium which is not high even potassium level is normal, continue to monitor. 7) Secondary hyperparathyroidism. Phosphorus levels were normal in the recent blood test. Vitamin D levels were normal PTH was more or less stable the level of renal dysfunction at 118. Avoid calcium supplementation. Consider vitamin D alone as an outpatient. All questions answered.
[2021-01-11] MEDS: Bactroban OINTMENT TP SCH ×3 (09:00→21:03)
[2021-01-11] MEDS: Lantus Insulin SQ SCH ×2 (09:01→21:04)
[2021-01-11] MEDS: Cozaar 50 MG PO SCH (09:01)
[2021-01-11] MEDS: Lopressor 50 MG PO SCH ×2 (09:01→21:04)
[2021-01-11] MEDS: Colace 100 MG PO SCH (09:01)
[2021-01-11] MEDS: Protonix 40MG Tablet PO SCH (09:02)
[2021-01-11] MEDS: PATIENT OWN MEDICATION PO SCH (09:02)
[2021-01-11] MEDS: Coumadin 3 MG PO SCH (17:10)
[2021-01-11] MEDS: ZOCOR 20MG PO SCH (21:05)
[2021-01-11] MEDS: Levofloxacin 500MG/100ML D5W 500 MG/100 ML BAG IV SCH (23:16)
[2021-01-12] MEDS: TYLENOL 325 MG PO PRN (00:22)
[2021-01-12] MEDS ORDERED: Apresoline 25 MG TABLET PO ONE (01:00)
[2021-01-12] MEDS: BUMEX 1 MG IV SCH ×2 (03:10→07:36)
[2021-01-12] MEDS: Glucotrol 5 MG PO SCH (07:33)
[2021-01-12] MEDS: Protonix 40MG Tablet PO SCH (07:33)
[2021-01-12] MEDS: Lopressor 50 MG PO SCH (07:33)
[2021-01-12] MEDS: Colace 100 MG PO SCH (07:33)
[2021-01-12] MEDS: Cozaar 50 MG PO SCH (07:33)
[2021-01-12] MEDS: Lantus Insulin SQ SCH (07:33)
[2021-01-12] MEDS: HUMALOG SQ SCH ×2 (07:34→12:13)
[2021-01-12] MEDS: HUMULIN R SQ PRN ×2 (07:34→12:13)
[2021-01-12] MEDS: Bactroban OINTMENT TP SCH (07:35)
[2021-01-12] MEDS: PATIENT OWN MEDICATION PO SCH (07:36)
[2021-01-12 12:08] VITALS: BP 180/90; PULSE 77; O2SAT 96
--- NOTE | 2021-01-12 13:26 | DS ---
DISCHARGE DIAGNOSES: 1) LEUKOCYTOSIS. 2) WEAKNESS. 3) FALL. 4) ABRASIONS. 5) DIABETES MELLITUS TYPE II, OUT OF CONTROL. HOSPITAL COURSE: The patient is a 70 year-old white male patient who reports that at home he had fallen in his bath tub and took over an hour to get out of the tub. He eventually crawled to his phone to get help during which time he had abrasions over the knees and feet. The patient was initially seen in the emergency room and discharged home again but he was unable to care for himself in the home and presented back to the emergency room and was admitted to the hospital. At this time the patient was give IV antibiotics due to an elevation in his white count and elevation of his procalcitonin level indicating a possible bacterial infection although we could find no obvious source of infection. The patient's white count did improve with the antibiotic as did the procalcitonin level. The patient also has chronic renal failure. He was due to see his core stacker as an outpatient so we had him seen as an inpatient. We gave him additional Bumex for a couple of days to get the fluid out of his legs better but then after two days he got back down to his usual Bumex dosage. The patient otherwise was treated with Levaquin intravenously. By 01/11/2021, it was obvious the patient was still not able to care for himself in the home and he does live alone. He is therefore felt the need to go to rehab for strengthening with the hope of eventually returning home once again. The patient's medications otherwise at home which he will return to is: Amlodipine 10 mg a day, atorvastatin 40 mg a day, clonidine 0.1 mg t.i.d., docusate sodium 100 mg daily, Jardiance 10 mg a day, vitamin D 50,000 units weekly, gabapentin 300 mg t.i.d., glipizide 5 mg twice a day, Glucosamine and Chondroitin for knee pain. He is on Insulin Glargine, isosorbide 60 mg, losartan 25 mg, metolazone 2.5, metoprolol 100 mg twice a day, omeprazole 20 mg a day, atorvastatin 20 mg b.i.d., warfarin 6 mg a day. In addition to this he will be taking the Levaquin 500 mg every other day due to reduction of his renal function. The patient's renal function with creatinine remained at approximately 3.4 with renal function of 15-17% normal glomerular filtration rate and this did not change during his stay. The patient's blood pressure were a little high because I held off one of his blood pressure medications due to his weakness and relative thought of orthostatic hypotension. He had been running in the 160's to 180 range without his medications and these will be restarted when he goes to rehab. The patient will be seen in my office again in a couple of weeks after his rehab stay. If he is unable to improve to the point where he can care for himself in the home he may need to be admitted to the senior living.
[2021-01-13 15:13] LABS: CK-MB 0 % (0-3); CK-MM 98 % (97-100); Creatinine Kinase, Total 1477 U/L (41-331); Macro Type 2 0 % (Not Observed)
[2021-01-13 16:50] LABS: CK-BB 0 % (0); Macro Type 1 2 % (Not Observed)
== END 2021-01-12 13:37 | DRG 815 ==
LOC: ED 22:09 → OBSVTOIN 23:53 → INTOOBSV 23:53 → MED SURG 23:53 → OBSVTOIN 01-09 06:00
PROVIDERS: ADMIT Family Medicine; ATTEND Family Medicine
DX: D72.829 Elevated white blood cell count, unspecified (principal); N18.4 Chronic kidney disease, stage 4 (severe); N25.81 Secondary hyperparathyroidism of renal origin; R53.1 Weakness; Z79.899 Other long term (current) drug therapy; Z79.01 Long term (current) use of anticoagulants; S50.312A Abrasion of left elbow, initial encounter; S50.311A Abrasion of right elbow, initial encounter; S80.212A Abrasion, left knee, initial encounter; S80.211A Abrasion, right knee, initial encounter; S90.415A Abrasion, left lesser toe(s), initial encounter; S90.414A Abrasion, right lesser toe(s), initial encounter; E11.65 Type 2 diabetes mellitus with hyperglycemia; E11.22 Type 2 diabetes mellitus with diabetic chronic kidney disease; I12.9 Hypertensive chronic kidney disease with stage 1 through stage 4 chronic kidney disease, or unspecified chronic kidney disease; W18.2XXA Fall in (into) shower or empty bathtub, initial encounter; Z86.711 Personal history of pulmonary embolism; E87.70 Fluid overload, unspecified; E87.5 Hyperkalemia; Z20.828 Contact with and (suspected) exposure to other viral communicable diseases
CPT/HCPCS: 36000; 36415; 70450; 71046; 80048; 80053; 81001; 82550; 82552; 82947; 83036; 83605; 83735; 84145; 84484; 85025; 85610; 87040; 93005; 93041; 94760; 97110; 97161; 97530; 99284; G0378; U0003; J1815; J1817; J1956; A9270-GY

== ENCOUNTER 2021-02-07 19:26 | Emergency (ER) | payer MEDICARE, OTHER ==
--- NOTE | 2021-02-07 19:43 | ERPHSYRPT ---
- History of Present Illness Time Seen by Provider: 02/07/21 19:43 Source: patient Exam Limitations: no limitations Patient Subjective Stated Complaint: pt states, "I fell 2 times today, just needed to be checked out". Triage Nursing Assessment: pt was a pt at [facility] and got discharged yesterday. Pt has fallen 2 times today but no reported injuries. Pt states, "I was going to sit in my recliner but I got dizzy and turned around and tripped on my walker". The second fall, "I was heating my dinner up in the microwave and my back gave out on me causing me to fall". Pt uses a walker at home and had it with him. Pt has home health care which just began today and will be receiving Physical therapy from them". Pt has a rug burn to both elbows from falls, scabbed over. Physician History: This is a morbidly obese 70-year-old white male patient of Dr. Echeverria who has been in the emergency room's several times in the last 6 weeks for frequent falls. He has been written to the hospital on a couple occasions and most recently was transferred from the hospital to [facility]. Patient underwent significant physical therapy and per his admission prior to today's fall he had been walking up and down the hallways without any problems. However, today, his first day home, he states that he lost his balance and fell. He has no complaints of any pain. He denies head injury. He felt his back was hurting and then lost his balance because he felt as though his legs were going to give out. He has no specific pain complaints other than the back pain he felt when he turned and lost his balance. Again, he did not hit his head. He called the ambulance service to take him back to the emergency department because he "wants to know why he keeps falling". Patient denies chest pain. He denies shortness of breath. He denies abdominal pain. Patient has multiple medical problems including congestive heart failure, hypertension, pulmonary embolism on Coumadin therapy, asthma, bronchitis, diabetes and chronic renal failure with a left upper extremity fistula present. According to the patient, physical therapy and home health is in the process of being scheduled for him as an outpatient. Occurred: just prior to arrival Reason for Fall: lost balance Injuries/Pain Location: no injury, head Loss of Consciousness: no loss of consciousness Quality: other (No complaints of pain) Severity of Pain-Max: none Severity of Pain-Current: none Associated Symptoms (Fall): denies symptoms Allergies/Adverse Reactions: Tetracyclines Allergy (Intermediate, Verified 02/07/21 19:41) erythromycin base Allergy (Mild, Verified 02/07/21 19:41) Home Medications: Acetaminophen 325 mg [Tylenol 325 mg] 325 mg PO Q4H PRN PRN 09/02/16 [History] Docusate Sodium 100 mg [Colace 100 MG] 100 mg PO DAILY 09/02/16 [History] Glipizide 5 mg [Glucotrol 5 MG] 10 mg PO BID 09/02/16 [History] Glucagon 1 mg [GlucaGen 1 MG] 1 mg IM UD PRN 09/02/16 [History] Glucosam/Chondr/Collagn/Hyalur [Glucosamine & Chondroitin Cap] 1 each PO BID 09/02/16 [History] Metoprolol Tartrate 50 mg [Lopressor 50 MG] 100 mg PO BID 09/02/16 [ History] Empagliflozin [Jardiance] 10 mg PO DAILY 01/07/21 [History] Ergocalciferol (Vitamin D2) [Vitamin D] 50,000 units PO WEEKLY 01/07/21 [History] Clonidine HCl 0.1 mg PO TID 01/08/21 [History] Losartan Potassium [Cozaar] 25 mg PO DAILY 01/08/21 [History] Insulin Aspart [Novolog] 20 unit SQ AC 01/10/21 [History] Hx Tetanus, Diphtheria Vaccination/Date Given: No (STATES HE THINKS SO) Hx Influenza Vaccination/Date Given: Yes Hx Pneumococcal Vaccination/Date Given: Yes Immunizations Up to Date: Yes Travel Risk - International Travel Have you traveled outside of the country in past 3 weeks: No - Coronavirus Screening Are you exhibiting any of the following symptoms?: No - Vaccine Status Have you recieved a Covid-19 vaccination: Yes 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: [employer] - Vaccination Dates Date of 2cond Vaccination (if applicable): 09/22/20 - Review of Systems Constitutional: No Symptoms Eyes: No Symptoms Ears, Nose, & Throat: No Symptoms Respiratory: No Symptoms Cardiac: No Symptoms Abdominal/Gastrointestinal: No Symptoms Genitourinary Symptoms: No Symptoms Musculoskeletal: No Symptoms Skin: Other (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 toes.) Neurological: No Symptoms Psychological: No Symptoms Endocrine: No Symptoms Hematologic/Lymphatic: No Symptoms Immunological/Allergic: No Symptoms - Past Medical History Pertinent Past Medical History: Yes Neurological History: No Pertinent History ENT History: No Pertinent History Cardiac History: Congestive Heart Failure, Hypertension Respiratory History: Pulmonary Embolism, CHF, Bronchitis, Pneumonia Endocrine Medical History: Diabetes Type II Musculoskeletal History: Arthritis GI Medical History: Other History: Other Psycho-Social History: No Pertinent History Male Reproductive Disorders: No Pertinent History Other Medical History: KIDNEY FUNCTION 23% (07/19/2016) - Past Surgical History Past Surgical History: Yes Neuro Surgical History: No Pertinent History Cardiac: CABG, Cardiac Catheterization Respiratory: No Pertinent History Gastrointestinal: No Pertinent History Genitourinary: No Pertinent History Musculoskeletal: No Pertinent History, Amputation Male Surgical History: No Pertinent History Other Surgical History: DENTAL, Fistula placement triple bypass, remove rt great toe, - Social History Smoking Status: Never smoker How long have you smoked: 1 year Exposure to second hand smoke: No Drug Use: none Patient Lives Alone: Yes Significant Family History: heart disease, hypertension, kidney/renal disease - Nursing Vital Signs Nursing Vital Signs: Initial Vital Signs Temperature 98.2 F 02/07/21 19:26 Pulse Rate 70 02/07/21 19:26 Respiratory Rate 22 02/07/21 19:26 Blood Pressure 146/75 02/07/21 19:26 O2 Sat by Pulse Oximetry 96 02/07/21 19:26 Pain Scale Pain Intensity 3 - Krystyna Coma Score Best Eye Response (Lerona): (4) open spontaneously Best Verbal Response (Krystyna): (5) oriented Best Motor Response (Lerona): (6) obeys commands Lerona Total: 15 - Physical Exam General Appearance: no apparent distress, alert, anxiety, obese Head Injury: no evidence of injury Eye Exam: PERRL/EOMI, eyes nml inspection ENT Exam: airway nml, evidence of ENT injury Neck Exam: supple, trachea midline, full range of motion, normal alignment, normal inspection Respiratory/Chest Exam: No chest tenderness, No respiratory distress, No crepitus Gastrointestinal Exam: No tenderness Rectal Exam: not done Extremity Exam: normal range of motion, capillary refill <3 sec, other (No tenderness on any extremities. 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 02/07/21 21:17 Medical decision making: This patient has had a significant work-up in the last 6 weeks regarding his frequent falls. Per his admission, he states that he was walking up and down the tellez several times a day as recent as prior to 24 hours ago. However, he has been home during the day today. He was cooking his microwave dinner when he lost his balance and turn and fell again. He called EMS to come into the emergency department because suddenly he cannot move. However, he states he does not have any pain in his extremities at all. This patient has no emergency issue tonight. He has home health and physical therapy set up for this week. Patient will be discharged to home with instructions to contact his home health provider tomorrow morning as well as physical therapy for further management. Counseled pt/family regarding: diagnosis, need for follow-up, rad results - Departure Departure Disposition: Home Clinical Impression: Fall with no significant injury Condition: Stable Critical Care Time: No Referrals: KEVIN ECHEVERRIA [Primary Care Provider] - Additional Instructions: Continue your Roberto Sher discharge instructions. Continue medications and diet as instructed and prescribed.
[2021-02-07 21:54] VITALS: BP 156/78; PULSE 88; O2SAT 97
--- NOTE | 2021-02-08 09:02 | XRAY ---
Indication: Frequent falls. Recent discharge from [facility]. Multiple contiguous axial images obtained through the head without contrast. Comparison: January 07, 2021. There is again age-appropriate global atrophy and mild periventricular degenerative micro-ischemia bilaterally. No acute intracranial hemorrhage, abnormal extra-axial fluid collection, or mass effect. Fourth ventricle is midline without hydrocephalus. Bony calvarium intact. Visualized paranasal sinuses and mastoid air cells are clear. Impression: Continued nonacute senile brain.
== END 2021-02-07 21:55 | disposition home or self-care (01) ==
LOC: ED 19:26
DX: T22.021A Burn of unspecified degree of right elbow, initial encounter (principal); W18.39XA Other fall on same level, initial encounter; Z91.81 History of falling; Y93.89 Activity, other specified; Y92.129 Unspecified place in nursing home as the place of occurrence of the external cause; R29.6 Repeated falls; E11.9 Type 2 diabetes mellitus without complications; I50.9 Heart failure, unspecified; I10 Essential (primary) hypertension; Z86.711 Personal history of pulmonary embolism; Z79.899 Other long term (current) drug therapy
CPT/HCPCS: 70450; 99284

== ENCOUNTER 2021-02-08 19:34 | Observation (INO) | payer MEDICARE, OTHER ==
[2021-02-08 20:45] LABS: ALBUMIN 3.5 g/dL (3.5-5.0); ANION GAP 13.6 MEQ/L (5-15); BILIRUBIN,TOTAL 0.3 mg/dL (0.2-1.3); Creatinine 1 3.5 mg/dL (0.66-1.25); EST GLOMERULAR FILTRATION RATE 18.6 ML/MIN; Potassium 4.2 mmol/L (3.5-5.1); Total Protein 6.3 g/dL (6.3-8.2)
[2021-02-08 20:58] LABS: Absolute Neutrophil Ct (ANC) 3.86 (1.4-6.9); BASOPHIL % 0.4 % (0.0-0.4); Basophil (Absolute #) 0.02 (0-0.4); Eosinophil % 2.6 % (0.00-5.0); Eosinophil (Absolute #) 0.15 (0-0.5); Hematocrit 34.7 % (42-50); Hemoglobin 11.4 gm/dl (12.5-18.0); Lymphocyte (Absolute #) 0.86 (1.0-4.6); Lymphocytes % 15.2 % (24.0-44.0); Mean Cell Volume 91.3 fl (78-100); Mean Corpuscular Hgb Concent. 32.9 g/dl (32-36); Mean Platelet Volume 12.5 fl (7.5-11.0); Monocyte (Absolute #) 0.78 (0.0-1.3); Monocytes % 13.8 % (0.0-12.0); Platelet Count 171 K/mm3 (150-450); White Blood Count 5.7 K/mm3 (4.0-10.5)
--- NOTE | 2021-02-09 00:31 | ERPHSYRPT ---
- History of Present Illness Time Seen by Provider: 02/08/21 19:56 Source: patient Exam Limitations: no limitations Patient Subjective Stated Complaint: Patient states " I called 911 because I felt weak and been having multiple falls." Triage Nursing Assessment: Patient arrived to ED via ambulance. Patient A/O times 4. Patient able to follow instructions without difficulty. Patient was in ED last night R/T weakness and falls. Patient stated he had talked to Dr. Echeverria and he told him to just come back to ED to be admitted so he could go back to [facility]. Patient BS upon arrival 56. EMS had given patient tube of oral glucose on route to ED. Patient alert and talkative. Central color pale. Patient denies any SOB or chest pain. Lungs diminished A/P throughout. Respiratory regular and easy. No acute respiratory distress noted. Cap refill < 3 seconds. + BS times 4 quads. ABD soft, obese, non-distended. Patient denies any pain or discomfort upon palpitation. Patient noted with 1-2+ pitting edema to bilateral lower extremities. 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 Neuro checks WNL. Patient denies any N/V. Patient denies any headaches or dizziness. Patient stated he just continues to have weakness and that he needs to go back to [facility] for therapy. Abrasions that are scabbed noted to left knee and right elbow. No treatment needed at this time. Patient denies any pain or discomfort. Patient did tell assembly instructions writer that his BS at lunch time was 258 so he did take 20U of his Novolog and 30U of basagler insulin to try and bring it down and didn't eat anything for lunch in which BS dropped resulting in BS 56. Physician History: Patient is a 70-year-old male presents to our ED via EMS for evaluation and treatment of hypoglycemia. Patient states that he checked his blood sugar earlier in the day sugar was 258. Patient took 20 units of NovoLog and 50 units of Basaglar. Patient later began to feel weak. Patient fell at home. Patient called his primary care doctor who advised patient come to our ED for admission. Patient called EMS. Upon their arrival blood sugar level was 50. Patient was treated with glucose. Upon arrival to our ED blood sugar was 56. Patient states he feels weak. Patient was in our ED last night for the same. Patient believes he needs to be admitted or transferred to [facility] for rehab. Patient denies injuries. No neck pain. No headache. Cervical spine cleared clinically. Symptoms are mild to moderate in intensity. Patient voices no other complaints concerns at this time. Timing/Duration: today Severity: moderate Modifying Factors: Improves With: medication Associated Symptoms: weakness (Generalized weakness) Allergies/Adverse Reactions: Tetracyclines Allergy (Intermediate, Verified 02/08/21 20:38) erythromycin base Allergy (Mild, Verified 02/08/21 20:38) Home Medications: Acetaminophen 325 mg [Tylenol 325 mg] 325 mg PO Q4H PRN PRN 09/02/16 [History] Docusate Sodium 100 mg [Colace 100 MG] 100 mg PO DAILY 09/02/16 [History] Glipizide 5 mg [Glucotrol 5 MG] 10 mg PO BID 09/02/16 [History] Glucagon 1 mg [GlucaGen 1 MG] 1 mg IM UD PRN 09/02/16 [History] Glucosam/Chondr/Collagn/Hyalur [Glucosamine & Chondroitin Cap] 1 each PO BID 09/02/16 [History] Metoprolol Tartrate 50 mg [Lopressor 50 MG] 100 mg PO BID 09/02/16 [History] Empagliflozin [Jardiance] 10 mg PO DAILY 01/07/21 [History] Ergocalciferol (Vitamin D2) [Vitamin D] 50,000 units PO WEEKLY 01/07/21 [History] Clonidine HCl 0.1 mg PO TID 01/08/21 [History] Losartan Potassium [Cozaar] 25 mg PO DAILY 01/08/21 [History] Insulin Aspart [Novolog] 20 unit SQ AC 01/10/21 [History] Amlodipine Besylate 10 mg PO DAILY 02/08/21 [History] Atorvastatin Calcium 40 mg PO HS 02/08/21 [History] Fexofenadine HCl 180 mg PO DAILY 02/08/21 [History] Gabapentin 300 mg [Neurontin 300 mg] 300 mg PO TID 02/08/21 [History] Insulin Glargine,Hum.rec.anlog [Basaglar Kwikpen U-100] 50 units SQ DAILY 02/08/21 [History] Isosorbide Mononitrate 60 mg [Imdur 60MG] 60 mg PO DAILY 02/08/21 [History] Multivitamin 1 tab PO DAILY 02/08/21 [History] Omeprazole 20 mg PO DAILY 02/08/21 [History] Torsemide 20 mg [Demadex 20 mg] 20 mg PO BID 02/08/21 [History] Hx Tetanus, Diphtheria Vaccination/Date Given: No (STATES HE THINKS SO) Hx Influenza Vaccination/Date Given: Yes Hx Pneumococcal Vaccination/Date Given: Yes Immunizations Up to Date: Yes Travel Risk - International Travel Have you traveled outside of the country in past 3 weeks: No - Coronavirus Screening Are you exhibiting any of the following symptoms?: No Close contact with a COVID-19 positive Pt in past 14-21 Days: No - Vaccine Status Have you recieved a Covid-19 vaccination: Yes 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[employer] - Vaccination Dates Date of 2cond Vaccination (if applicable): 09/22/20 - Review of Systems Constitutional: No Symptoms, No Fever, No Chills Eyes: No Symptoms Ears, Nose, & Throat: No Symptoms Respiratory: No Symptoms, No Cough, No Dyspnea Cardiac: No Symptoms, No Chest Pain, No Edema, No Syncope Abdominal/Gastrointestinal: No Symptoms, No Abdominal Pain, No Nausea, No Vomiting, No Diarrhea Genitourinary Symptoms: No Symptoms, No Dysuria Musculoskeletal: No Symptoms, No Back Pain, No Neck Pain Skin: No Symptoms, No Rash Neurological: No Symptoms, No Dizziness, No Focal Weakness, No Sensory Changes Psychological: No Symptoms Endocrine: No Symptoms Hematologic/Lymphatic: No Symptoms Immunological/Allergic: No Symptoms All Other Systems: Reviewed and Negative - Past Medical History Pertinent Past Medical History: Yes Neurological History: No Pertinent History ENT History: No Pertinent History Cardiac History: Congestive Heart Failure, Hypertension Respiratory History: Pulmonary Embolism, CHF, Bronchitis, Pneumonia Endocrine Medical History: Diabetes Type II Musculoskeletal History: Arthritis GI Medical History: Other History: Other Psycho-Social History: No Pertinent History Male Reproductive Disorders: No Pertinent History Other Medical History: KIDNEY FUNCTION 23% (07/19/2016) - Past Surgical History Past Surgical History: Yes Neuro Surgical History: No Pertinent History Cardiac: CABG, Cardiac Catheterization Respiratory: No Pertinent History Gastrointestinal: No Pertinent History Genitourinary: No Pertinent History Musculoskeletal: No Pertinent History, Amputation Male Surgical History: No Pertinent History Other Surgical History: DENTAL, Fistula placement triple bypass, remove rt great toe, - Social History Smoking Status: Never smoker How long have you smoked: 1 year Exposure to second hand smoke: No Drug Use: none Patient Lives Alone: Yes Significant Family History: heart disease, hypertension, kidney/renal disease - Nursing Vital Signs Nursing Vital Signs: Initial Vital Signs Temperature 97.8 F 02/08/21 19:53 Pulse Rate 68 02/08/21 19:53 Respiratory Rate 20 02/08/21 19:53 Blood Pressure 140/62 02/08/21 19:53 O2 Sat by Pulse Oximetry 96 02/08/21 19:53 Pain Scale Pain Intensity 0 - Physical Exam General Appearance: no apparent distress, alert Eye Exam: PERRL/EOMI, eyes nml inspection Ears, Nose, Throat Exam: normal ENT inspection, TMs normal, pharynx normal, moist mucous membranes Neck Exam: normal inspection, non-tender, supple, full range of motion Respiratory Exam: normal breath sounds, lungs clear, No respiratory distress Cardiovascular Exam: regular rate/rhythm, normal heart sounds, normal peripheral pulses Gastrointestinal/Abdomen Exam: soft, normal bowel sounds, No tenderness, No mass Back Exam: normal inspection, normal range of motion, No CVA tenderness, No vertebral tenderness Extremity Exam: normal inspection, normal range of motion, pelvis stable, other (2+ pitting edema bilateral lower extremity.) Neurologic Exam: alert, oriented x 3, cooperative, normal mood/affect, sensation nml, No motor deficits Skin Exam: normal color, warm, dry, No rash Lymphatic Exam: No adenopathy SpO2 Interpretation: normal SpO2: 100 O2 Delivery: Room Air - Course Nursing assessment & vital signs reviewed: Yes EKG Interpreted by Me: RATE (65), Sinus Rhythm, NORMAL INTERVALS, Right Bundle Branch Block (Left ventricular hypertrophy) Ordered Tests: Active Orders 24 hr Category Date Time Status Customer Success Advocate STAT Care 02/08/21 19:48 Active EKG-ER Only STAT Care 02/08/21 19:47 Active IV Insertion STAT Care 02/08/21 19:47 Active Pulse Oximetry (ED) STAT Care 02/08/21 19:47 Active CBC W DIFF Stat Lab 02/08/21 20:15 Completed CMP Stat Lab 02/08/21 20:15 Completed POCT GLUCOSE Stat Lab 02/08/21 19:48 Completed POCT GLUCOSE Stat Lab 02/08/21 21:41 Completed POCT GLUCOSE Stat Lab 02/08/21 22:44 Completed POCT GLUCOSE Stat Lab 02/09/21 00:17 Completed POCT GLUCOSE Stat Lab 02/09/21 01:28 Completed TROPONIN Q3H Lab 02/08/21 20:15 Completed TROPONIN Q3H Lab 02/08/21 22:53 Completed TROPONIN Q3H Lab 02/09/21 02:45 Completed Transfer Order Routine Transfer 02/09/21 Ordered Medication Summary Discontinued Medications Generic Name Dose Route Start Last Admin Trade Name Juan Carlosq PRN Reason Stop Dose Admin Clonidine 0.1 mg 02/09/21 02:07 02/09/21 02:13 Catapres 0.1 Mg PO 02/09/21 02:08 0.1 mg STAT ONE Administration Clonidine Confirm 02/09/21 02:11 Catapres 0.1 Mg Administered 02/09/21 02:12 Dose 0.1 mg .ROUTE .STK-MED ONE Metoprolol Tartrate 100 mg 02/09/21 02:07 02/09/21 02:13 Lopressor 50 Mg PO 02/09/21 02:08 100 mg STAT ONE Administration Metoprolol Tartrate Confirm 02/09/21 02:11 Lopressor 50 Mg Administered 02/09/21 02:12 Dose 100 mg .ROUTE .STK-MED ONE Lab/Rad Data: Laboratory Result Diagrams 02/08/21 20:15 02/08/21 20:15 Laboratory Results 02/09/21 02/09/21 02/09/21 Range/Units 02:45 02:45 01:28 WBC (4.0-10.5) K/mm3 RBC (4.1-5.6) M/mm3 Hgb (12.5-18.0) gm/dl Hct (42-50) % MCV (78-100) fl MCH (26-32) pg MCHC (32-36) g/dl RDW (11.5-14.0) % Plt Count (150-450) K/mm3 MPV (7.5-11.0) fl Gran % (36.0-66.0) % Eos # (Auto) (0-0.5) Absolute Lymphs (auto) (1.0-4.6) Absolute Monos (auto) (0.0-1.3) Lymphocytes % (24.0-44.0) % Monocytes % (0.0-12.0) % Eosinophils % (0.00-5.0) % Basophils % (0.0-0.4) % Absolute Granulocytes (1.4-6.9) Basophils # (0-0.4) Sodium (137-145) mmol/L Potassium (3.5-5.1) mmol/L Chloride (98-107) mmol/L Carbon Dioxide (22-30) mmol/L Anion Gap (5-15) MEQ/L BUN (9-20) mg/dL Creatinine (0.66-1.25) mg/dL Estimated GFR ML/MIN Glucose (74-106) mg/dL POC Glucometer 155 H (74 to 106) mg/dL Calcium (8.4-10.2) mg/dL Total Bilirubin (0.2-1.3) mg/dL AST (17-59) U/L ALT (0-50) U/L Alkaline Phosphatase (38-126) U/L Troponin I < 0.012 (0.000-0.034) ng/mL Serum Total Protein (6.3-8.2) g/dL Albumin (3.5-5.0) g/dL SARS-CoV-2 (PCR) NEGATIVE (NEGATIVE) 02/09/21 02/08/21 02/08/21 Range/Units 00:17 22:53 22:44 WBC (4.0-10.5) K/mm3 RBC (4.1-5.6) M/mm3 Hgb (12.5-18.0) gm/dl Hct (42-50) % MCV (78-100) fl MCH (26-32) pg MCHC (32-36) g/dl RDW (11.5-14.0) % Plt Count (150-450) K/mm3 MPV (7.5-11.0) fl Gran % (36.0-66.0) % Eos # (Auto) (0-0.5) Absolute Lymphs (auto) (1.0-4.6) Absolute Monos (auto) (0.0-1.3) Lymphocytes % (24.0-44.0) % Monocytes % (0.0-12.0) % Eosinophils % (0.00-5.0) % Basophils % (0.0-0.4) % Absolute Granulocytes (1.4-6.9) Basophils # (0-0.4) Sodium (137-145) mmol/L Potassium (3.5-5.1) mmol/L Chloride (98-107) mmol/L Carbon Dioxide (22-30) mmol/L Anion Gap (5-15) MEQ/L BUN (9-20) mg/dL Creatinine (0.66-1.25) mg/dL Estimated GFR ML/MIN Glucose (74-106) mg/dL POC Glucometer 122 H 76 (74 to 106) mg/dL Calcium (8.4-10.2) mg/dL Total Bilirubin (0.2-1.3) mg/dL AST (17-59) U/L ALT (0-50) U/L Alkaline Phosphatase (38-126) U/L Troponin I < 0.012 (0.000-0.034) ng/mL Serum Total Protein (6.3-8.2) g/dL Albumin (3.5-5.0) g/dL SARS-CoV-2 (PCR) (NEGATIVE) 02/08/21 02/08/21 02/08/21 Range/Units 21:41 20:15 20:15 WBC (4.0-10.5) K/mm3 RBC (4.1-5.6) M/mm3 Hgb (12.5-18.0) gm/dl Hct (42-50) % MCV (78-100) fl MCH (26-32) pg MCHC (32-36) g/dl RDW (11.5-14.0) % Plt Count (150-450) K/mm3 MPV (7.5-11.0) fl Gran % (36.0-66.0) % Eos # (Auto) (0-0.5) Absolute Lymphs (auto) (1.0-4.6) Absolute Monos (auto) (0.0-1.3) Lymphocytes % (24.0-44.0) % Monocytes % (0.0-12.0) % Eosinophils % (0.00-5.0) % Basophils % (0.0-0.4) % Absolute Granulocytes (1.4-6.9) Basophils # (0-0.4) Sodium 140 (137-145) mmol/L Potassium 4.2 (3.5-5.1) mmol/L Chloride 110 H (98-107) mmol/L Carbon Dioxide 21 L (22-30) mmol/L Anion Gap 13.6 (5-15) MEQ/L BUN 49 H (9-20) mg/dL Creatinine 3.50 H (0.66-1.25) mg/dL Estimated GFR 18.6 ML/MIN Glucose 63 L (74-106) mg/dL POC Glucometer 68 L (74 to 106) mg/dL Calcium 9.0 (8.4-10.2) mg/dL Total Bilirubin 0.30 (0.2-1.3) mg/dL AST 25 (17-59) U/L ALT 12 (0-50) U/L Alkaline Phosphatase 76 (38-126) U/L Troponin I < 0.012 (0.000-0.034) ng/mL Serum Total Protein 6.3 (6.3-8.2) g/dL Albumin 3.5 (3.5-5.0) g/dL SARS-CoV-2 (PCR) (NEGATIVE) 02/08/21 02/08/21 Range/Units 20:15 19:48 WBC 5.7 (4.0-10.5) K/mm3 RBC 3.80 L (4.1-5.6) M/mm3 Hgb 11.4 L (12.5-18.0) gm/dl Hct 34.7 L (42-50) % MCV 91.3 (78-100) fl MCH 30.0 (26-32) pg MCHC 32.9 (32-36) g/dl RDW 14.0 (11.5-14.0) % Plt Count 171 (150-450) K/mm3 MPV 12.5 H (7.5-11.0) fl Gran % 68.0 H (36.0-66.0) % Eos # (Auto) 0.15 (0-0.5) Absolute Lymphs (auto) 0.86 L (1.0-4.6) Absolute Monos (auto) 0.78 (0.0-1.3) Lymphocytes % 15.2 L (24.0-44.0) % Monocytes % 13.8 H (0.0-12.0) % Eosinophils % 2.6 (0.00-5.0) % Basophils % 0.4 (0.0-0.4) % Absolute Granulocytes 3.86 (1.4-6.9) Basophils # 0.02 (0-0.4) Sodium (137-145) mmol/L Potassium (3.5-5.1) mmol/L Chloride (98-107) mmol/L Carbon Dioxide (22-30) mmol/L Anion Gap (5-15) MEQ/L BUN (9-20) mg/dL Creatinine (0.66-1.25) mg/dL Estimated GFR ML/MIN Glucose (74-106) mg/dL POC Glucometer 56 L (74 to 106) mg/dL Calcium (8.4-10.2) mg/dL Total Bilirubin (0.2-1.3) mg/dL AST (17-59) U/L ALT (0-50) U/L Alkaline Phosphatase (38-126) U/L Troponin I (0.000-0.034) ng/mL Serum Total Protein (6.3-8.2) g/dL Albumin (3.5-5.0) g/dL SARS-CoV-2 (PCR) (NEGATIVE) - Progress Progress: improved Progress Note: Case discussed with Dr. Echeverria who accepts admission to observation. Patient is Covid negative. Admit orders entered. Patient will be admitted for treatment of generalized weakness and falls. Plan of care discussed with tatum kraft. He agrees to admission to [facility] for further evaluation and treatment. 02/09/21 04:10 Discussed with : Althea Will see patient in: hospital (observation) Counseled pt/family regarding: lab results, diagnosis, rad results - Departure Departure Disposition: Observation Clinical Impression: Hypoglycemia, Chronic renal insufficiency, Generalized weakness Condition: Stable Critical Care Time: No Referrals: KEVIN ECHEVERRIA [Primary Care Provider] -
[2021-02-09] MEDS ORDERED: Lopressor 50 MG PO ONE (02:07)
[2021-02-09] MEDS ORDERED: Catapres 0.1 MG PO ONE (02:07)
[2021-02-09] MEDS ORDERED: Lopressor 50 MG ONE (02:11)
[2021-02-09] MEDS ORDERED: Catapres 0.1 MG ONE (02:11)
[2021-02-09] MEDS ORDERED: Zofran 4 MG/2 ML VIAL IV PRN (04:38)
[2021-02-09] MEDS ORDERED: MORPHINE SULFATE 2 MG INJ IV PRN (04:38)
[2021-02-09 09:25] LABS: INR 1.47 (0.8-3.0); PROTIME 17.4 SECONDS (9.4-12.5)
[2021-02-09] MEDS ORDERED: TYLENOL 325 MG PO PRN ×2 (09:58)
[2021-02-09] MEDS ORDERED: GlucaGen 1 MG IM PRN (09:58)
[2021-02-09] MEDS ORDERED: Zaroxolyn 2.5 MG PO PRN (09:58)
[2021-02-09] MEDS ORDERED: NON-FORMULARY ITEM (Amlodipine Besylate [Amlodipine Besylate] 10 MG) PO SCH (10:00)
[2021-02-09] MEDS ORDERED: NON-FORMULARY ITEM (Multivitamin [Multivitamin] 1 TAB) PO SCH (10:00)
[2021-02-09] MEDS ORDERED: INSULIN GLARGINE HUM REC ANLOG 50 UNIT SQ SCH (10:00)
[2021-02-09] MEDS ORDERED: NON-FORMULARY ITEM (Omeprazole [Omeprazole] 20 MG) PO SCH (10:00)
[2021-02-09] MEDS ORDERED: NON-FORMULARY ITEM (Losartan Potassium [Cozaar] 25 MG) PO SCH (10:00)
[2021-02-09] MEDS ORDERED: [UNRECOGNIZED DRUG - OTHER] PO SCH (10:00)
[2021-02-09] MEDS ORDERED: NON-FORMULARY ITEM (Fexofenadine Hcl [Fexofenadine Hcl] 180 MG) PO SCH (10:00)
[2021-02-09] MEDS ORDERED: NON-FORMULARY ITEM (Empagliflozin [Jardiance] 10 MG) PO SCH (10:00)
--- NOTE | 2021-02-09 10:09 | HP ---
CHIEF COMPLAINT: Chills, weakness, unable to support his own weight and falling. HISTORY OF PRESENT ILLNESS: The patient is a 70-year-old white male patient who had been in [facility] for essentially the same thing about three weeks. He reports that with therapy he was able to get up and walk around again to the point where he was felt to be ready for discharge home again. The patient was home for two or three days when he noticed a sudden onset of the return of weakness and falling. He reports that he was kind of falling to the right and having some room spinning-type of dizziness. The patient was brought to the emergency room. CT scan showed no acute changes. The patient neurologically was intact otherwise. PAST MEDICAL/SURGICAL HISTORY: Significant diabetes mellitus type II on insulin. He has allergy problems. He has been on Coumadin for pulmonary embolism. History of congestive heart failure, bronchitis, pneumonia, hypertension. He also has chronic renal failure with kidney function around 23%. He has had previous triple bypass and removal of the right big toe from his diabetes problems. HOME MEDICATIONS: Acetaminophen PRN basis, amlodipine 10 mg a day, atorvastatin 40 mg, clonidine 0.1 mg t.i.d., docusate sodium 100 mg daily, Jardiance 10 mg a day, vitamin D 50,000 units weekly, fexofenadine 180 mg for allergies, gabapentin 300 mg t.i.d. for neuropathy, glipizide 10 mg b.i.d., Glucagon at home should he need it. He is also taking glucosamine chondroitin tablets. He is on 20 units of subcu NovoLog which he takes before meals. He is taking Insulin Glargine 50 units daily, isosorbide 60 mg a day, losartan 25 mg a day, metolazone 2.5 mg PRN if he reports elevated blood pressure. We did correct him that this is more for his edema than his blood pressure. Metoprolol 50 mg b.i.d., multivitamin, omeprazole 20 mg a day, torsemide 20 mg twice daily, warfarin 6 mg alternating with 8 mg. ALLERGIES: TETRACYCLINE. ERYHTHROMYCIN. PHYSICAL EXAMINATION: Vital signs on admission showed his temperature 97.8F, pulse 68, respiratory rate 20 and blood pressure 140/62. O2 saturation 96%. HEENT: Normocephalic, atraumatic. Pupils equal round reactive to light. Extraocular movements intact. Oropharynx is pink and moist. NECK: Supple without lymphadenopathy, thyromegaly or JVD. No bruits were heard. CHEST: Clear to auscultation. HEART: Regular rate and rhythm without significant murmurs, rubs or gallops heard. ABDOMEN: Soft. No palpable masses. EXTREMITIES: Without cyanosis, clubbing or edema. He has had some abrasions over his elbows for which he currently has bandages placed. NEUROLOGIC: The patient is alert and oriented x3. No focal deficits. No nystagmus seen. The patient is able to move all four extremities equally. LAB DATA AND TESTS: The patient in the emergency room had CT scan of the brain which showed no acute changes. He had a troponin less than 0.012 on two separate occasions. He had a glucose that was low as he had taken his insulin without eating. In the emergency room they had to give him fluid and did eventually get it over a 100. On admission his glucose was 63, BUN 49, creatinine 3.50. Electrolytes were fairly normal. His liver enzymes were normal. His white count was 5,700, hemoglobin 11.4, PLT count 171,000. He did COVID test negative. His EKG showed bundle branch block-type pattern with left ventricular hypertrophy but no acute changes were noted and appears to be in a fairly regular rhythm but P-waves are not real discernable. ASSESSMENT: A patient with change in neurologic status with inability to walk and falling to the right. We will get a tele-neurology consult to see if there is anything else we should be looking at for him. We will also discuss with radiology about getting MRI of the brain and possibly CT-A of the neck and brain to look for any bigger issues of blockages.
[2021-02-09] MEDS ORDERED: MEDICATION INTERVENTION PO SCH ×2 (10:30)
[2021-02-09] MEDS: Imdur 60MG PO SCH (11:08)
[2021-02-09] MEDS: Colace 100 MG PO SCH (11:08)
[2021-02-09] MEDS: Protonix 40MG Tablet PO SCH (11:08)
[2021-02-09] MEDS: NORVASC 5 MG PO SCH (11:09)
[2021-02-09] MEDS: NEURONTIN 300 MG PO SCH ×3 (11:09→21:17)
[2021-02-09] MEDS: ANTIVERT 25 MG PO SCH ×3 (11:09→21:17)
[2021-02-09] MEDS: Lopressor 50 MG PO SCH ×2 (11:09→21:17)
[2021-02-09] MEDS: THERAGRAN MULTIVITAMIN PO SCH (11:09)
[2021-02-09] MEDS: DEMADEX 20 MG PO SCH ×2 (11:09→17:35)
[2021-02-09] MEDS: Cozaar 50 MG PO SCH (11:09)
[2021-02-09] MEDS: Catapres 0.1 MG PO SCH ×3 (11:09→21:17)
[2021-02-09] MEDS: CLARITIN 10 MG PO SCH (11:09)
[2021-02-09] MEDS: Lantus Insulin SQ SCH (11:10)
[2021-02-09] MEDS ORDERED: INSULIN ASPART 20 UNIT SQ SCH (11:30)
--- NOTE | 2021-02-09 12:05 | XRAY ---
Indication: Dizziness. Stroke like symptoms. Multi-slab 3-D [id number] MRA [place] performed. Comparison: None Distal internal carotid arteries are bilaterally symmetric without critical stenosis, obstruction, or AV malformation. Normal carotid terminus with normal branching A1 and M1 segments bilaterally. More distal anterior cerebral and middle cerebral arteries are normal in MRA appearance bilaterally. Posterior circulation demonstrates normal MRA appearance to the basilar artery, left/right posterior cerebral, left/right superior cerebellar, and left/right anterior inferior cerebellar arteries. Impression: Negative MRA [place].
--- NOTE | 2021-02-09 12:30 | XRAY ---
Indication: Dizziness. Stroke like symptoms. Sagittal, coronal, and axial MRI brain performed without contrast using T1, T2, FLAIR, diffusion, and ADC sequences. Comparison: None Age-appropriate global atrophy and mild periventricular degenerative micro-ischemia signal bilaterally. Diffusion images demonstrates 5 mm focus of restricted signal left mid periventricular white matter favoring acute ischemia. No acute intracranial hemorrhage, abnormal extra-axial fluid collection, or mass effect. Fourth ventricle is midline without hydrocephalus. 7/8 cranial nerve complex bilaterally symmetric. Normal flow-void signal within the major intracerebral circulation. Normal appearing craniocervical junction and sella turcica. Paranasal sinuses are clear. Impression: 1. Left mid periventricular 5 mm focus acute micro-ischemia. No acute hemorrhage or mass effect. 2. Atrophy and degenerative micro-ischemia within normal limits for patient's age.
[2021-02-09] MEDS: HUMALOG SQ SCH ×2 (12:35→17:36)
--- NOTE | 2021-02-09 16:52 | XRAY ---
Indication: Dizziness. Two-dimensional sonogram and color Doppler imaging of the carotid arteries of the neck performed. Comparison: None Examination of the right carotid circulation demonstrates minimal scattered arteriosclerotic plaquing in the common carotid, carotid bulb, internal carotid, and external carotid arteries without critical stenosis/obstruction. PSV of the CCA is 70 cm/s. PSV of the ICA is 79 cm/s. ICA/CCA ratio is 1.1. Normal antegrade vertebral artery flow. Examination of the left carotid circulation demonstrates minimal scattered arteriosclerotic plaquing in the carotid bulb, internal carotid, and external carotid arteries. No critical stenosis/obstruction. PSV of the CCA is 86 cm/s. PSV of the ICA is 78 cm/s. ICA/CCA ratio is 0.9. Normal antegrade vertebral artery flow. Impression: Minimal scattered plaquing bilaterally. Negative for critical stenosis/obstruction. Velocity measurements and ratios are negative for hemodynamically significant flow limiting stenosis.
[2021-02-09] MEDS: Glucotrol 5 MG PO SCH (17:36)
[2021-02-09] MEDS: Coumadin 3 MG PO SCH (17:36)
[2021-02-09] MEDS: ZOCOR 20MG PO SCH (21:18)
[2021-02-09] MEDS ORDERED: LIPITOR 40MG PO SCH (22:00)
[2021-02-10 04:56] LABS: Absolute Neutrophil Ct (ANC) 2.93 (1.4-6.9); BASOPHIL % 0.4 % (0.0-0.4); Basophil (Absolute #) 0.02 (0-0.4); Eosinophil % 4.2 % (0.00-5.0); Eosinophil (Absolute #) 0.23 (0-0.5); Hematocrit 35.1 % (42-50); Hemoglobin 11.2 gm/dl (12.5-18.0); Lymphocyte (Absolute #) 1.46 (1.0-4.6); Lymphocytes % 26.7 % (24.0-44.0); Mean Cell Volume 93.1 fl (78-100); Mean Corpuscular Hemoglobin 29.7 pg (26-32); Mean Corpuscular Hgb Concent. 31.9 g/dl (32-36); Mean Platelet Volume 12.2 fl (7.5-11.0); Monocyte (Absolute #) 0.82 (0.0-1.3); Neutrophil % 53.7 % (36.0-66.0); Platelet Count 167 K/mm3 (150-450); Red Blood Count 3.77 M/mm3 (4.1-5.6); Red Cell Distribution Width 14.3 % (11.5-14.0); White Blood Count 5.5 K/mm3 (4.0-10.5)
[2021-02-10 05:15] LABS: ALBUMIN 3.2 g/dL (3.5-5.0); BILIRUBIN,TOTAL 0.3 mg/dL (0.2-1.3); Calcium 8.4 mg/dL (8.4-10.2); Creatinine 1 3.9 mg/dL (0.66-1.25); EST GLOMERULAR FILTRATION RATE 16.4 ML/MIN; Potassium 4.5 mmol/L (3.5-5.1)
[2021-02-10] MEDS: Glucotrol 5 MG PO SCH ×2 (07:31→17:22)
[2021-02-10] MEDS: HUMALOG SQ SCH ×3 (07:31→17:22)
[2021-02-10] MEDS: ANTIVERT 25 MG PO SCH ×3 (09:20→21:00)
[2021-02-10] MEDS: THERAGRAN MULTIVITAMIN PO SCH (09:20)
[2021-02-10] MEDS: Colace 100 MG PO SCH (09:20)
[2021-02-10] MEDS: CLARITIN 10 MG PO SCH (09:20)
[2021-02-10] MEDS: NEURONTIN 300 MG PO SCH ×3 (09:20→21:02)
[2021-02-10] MEDS: Catapres 0.1 MG PO SCH ×3 (09:21→21:02)
[2021-02-10] MEDS: Protonix 40MG Tablet PO SCH (09:21)
[2021-02-10] MEDS: Imdur 60MG PO SCH (09:21)
[2021-02-10] MEDS: DEMADEX 20 MG PO SCH ×2 (09:21→17:22)
[2021-02-10] MEDS: Lopressor 50 MG PO SCH ×2 (09:22→21:01)
[2021-02-10] MEDS: Lantus Insulin SQ SCH (09:22)
[2021-02-10] MEDS: NORVASC 5 MG PO SCH (09:22)
[2021-02-10] MEDS: Cozaar 50 MG PO SCH (09:25)
[2021-02-10] MEDS ORDERED: Coumadin 5 MG PO SCH (10:00)
[2021-02-10 10:39] LABS: Risk Ratio 4.5
[2021-02-10] MEDS ORDERED: Coumadin 3 MG PO SCH (18:00)
[2021-02-10] MEDS: ZOCOR 20MG PO SCH (21:01)
[2021-02-11] MEDS: HUMALOG SQ SCH ×2 (07:34→12:21)
[2021-02-11] MEDS: Glucotrol 5 MG PO SCH ×2 (07:34→16:57)
[2021-02-11] MEDS ORDERED: Hydromorphone 1 mg/ml Injection IV PRN (09:01)
[2021-02-11] MEDS: Protonix 40MG Tablet PO SCH (09:38)
[2021-02-11] MEDS: Cozaar 50 MG PO SCH (09:38)
[2021-02-11] MEDS: THERAGRAN MULTIVITAMIN PO SCH (09:38)
[2021-02-11] MEDS: Lopressor 50 MG PO SCH (09:38)
[2021-02-11] MEDS: DEMADEX 20 MG PO SCH ×2 (09:39→16:58)
[2021-02-11] MEDS: NEURONTIN 300 MG PO SCH ×2 (09:39→14:48)
[2021-02-11] MEDS: ANTIVERT 25 MG PO SCH ×2 (09:39→14:48)
[2021-02-11] MEDS: CLARITIN 10 MG PO SCH (09:39)
[2021-02-11] MEDS: Coumadin 3 MG PO SCH (09:39)
[2021-02-11] MEDS: Imdur 60MG PO SCH (09:39)
[2021-02-11] MEDS: Catapres 0.1 MG PO SCH ×2 (09:39→14:48)
[2021-02-11] MEDS: NORVASC 5 MG PO SCH (09:39)
[2021-02-11] MEDS: Colace 100 MG PO SCH (09:39)
[2021-02-11] MEDS: Lantus Insulin SQ SCH (09:39)
[2021-02-11 16:35] VITALS: BP 123/63; PULSE 62; O2SAT 96
[2021-02-11 17:10] LABS: COVID AG -BINAX NOW RAPID TEST NEGATIVE (NEGATIVE)
[2021-02-12] MEDS ORDERED: VITAMIN D2 PO SCH (10:00)
--- NOTE | 2021-02-14 11:59 | DS ---
DISCHARGE DIAGNOSES: 1) WEAKNESS, 2) INABILITY TO WALK. HISTORY: The patient is a 70 year-old white male patient who was in a rehab facility and by the time he was finished with that he was able to walk on his own. The patient went home for two days and reports that he was unable to walk and his legs were too weak to support him. The patient was having multiple falls and he was brought into the hospital. HOSPITAL COURSE: The patient was admitted to the [facility] where he was given his usual home medications as listed in his H&P. He is diabetic and hypertensive. The patient did have a tele-neurology consult which felt the patient had no obvious reason for his inability to walk and concerned about psychologic overlay. The patient was unable to walk by himself and unable to get out of bed during his hospital stay with physical therapy. It was thought best that this patient be discharged to a rehab facility. At this point [facility] has accepted the patient to be transferred there this evening. The patient during his stay was noted to have a problem with his creatinine being worse. The patient does have a follow up clerk that sees him for his chronic renal failure problem. The patient is discharged now and sent to [facility] for further rehab before he may be considered to go home again.
== END 2021-02-11 17:56 | disposition short-term general hospital (02) ==
LOC: ED 19:34 → MED SURG 02-09 04:37
PROVIDERS: ADMIT Family Medicine; ATTEND Family Medicine
DX: R53.1 Weakness (principal); R42 Dizziness and giddiness; S80.212A Abrasion, left knee, initial encounter; S50.311A Abrasion of right elbow, initial encounter; Z79.899 Other long term (current) drug therapy; E11.9 Type 2 diabetes mellitus without complications; R26.2 Difficulty in walking, not elsewhere classified; I10 Essential (primary) hypertension; Z20.822 Contact with and (suspected) exposure to COVID-19; Z86.711 Personal history of pulmonary embolism; Z79.01 Long term (current) use of anticoagulants; Z79.4 Long term (current) use of insulin; R29.6 Repeated falls
CPT/HCPCS: 36000; 36415; 70544; 70551; 80053; 80061; 82947; 83721; 84145; 84484; 85025; 85610; 93005; 93041; 93268; 93880; 94760; 97110; 97161; 97165; 97530; 99000; 99285; G0378; U0003; J1817; A9270-GY